=== PATIENT | female | born 1975 | race Caucasian/White ===

== ENCOUNTER → 2017-03-30 09:03 | Outpatient (CLI) | payer OTHER, SELFPAY ==
[2017-03-30 10:42] LABS: Estradiol 27.8 pg/mL
[2017-03-30 10:47] LABS: Progesterone Level 14.41 ng/mL (See Comment)
== END ==
PROVIDERS: Family Provider Internal Medicine; PCP Internal Medicine; Visit Provider Specialist
DX: E28.8 Other ovarian dysfunction (principal)
CPT/HCPCS: 36415; 82670; 84144; 84403

== ENCOUNTER → 2017-08-20 12:42 | Outpatient (CLI) | payer OTHER, SELFPAY ==
--- NOTE | 2017-08-20 12:44 | BI_ITS ---
MAMMOGRAPHY - BILATERAL SCREENING REASON FOR EXAM: Female, 42 years old. Routine annual screening examination. PERTINENT HISTORY: Non-contributory. TECHNIQUE: Digital bilateral breast curly (3D mammographic acquisition) in the CC and MLO projections. 2-D mediolateral oblique (MLO) and craniocaudad (CC) views of both breasts were obtained. CAD: Full Field Digital Mammography with Computer Added Detection was performed. COMPARISON: None. Baseline examination. FINDINGS: Breast Composition: The breasts are heterogeneously dense, which may obscure small masses. There are no dominant masses or suspicious calcifications. No other significant abnormalities are identified. BI/SCREENING MAMM (CAD), BILAT IMPRESSION: Negative screening mammogram. Yearly followup mammogram recommended. (A) ASSESSMENT CATEGORY: BIRADS Category 1: Negative. A letter regarding these results will be sent to the patient by the facility within 30 days. Approximately 10% of breast cancers are not detected by mammography. A normal mammogram should not delay biopsy of a clinically suspicious abnormality. [id number] Electronically Signed: Arron Velasco MD at 14:35 EDT Tel [phone], Service support ,
[2017-08-20 14:23] LABS: Estradiol 18.4 pg/mL
[2017-08-21 08:46] LABS: Progesterone Level 7.96 ng/mL (See Comment); Vitamin D,25 Hydroxy 60.1 ng/mL (29.95-100.01)
[2017-08-21 09:05] LABS: DHEA Sulfate 263.8 ug/dL (57.3-279.2)
== END ==
PROVIDERS: Specialist; Family Provider Internal Medicine; PCP Internal Medicine; Visit Provider Obstetrics & Gynecology
DX: Z12.31 Encounter for screening mammogram for malignant neoplasm of breast (principal); N95.1 Menopausal and female climacteric states; E55.9 Vitamin D deficiency, unspecified
CPT/HCPCS: 36415; 77063; 77067; 82306; 82627; 82670; 84144; 84403; 82626

== ENCOUNTER → 2017-12-31 09:00 | Outpatient (CLI) | payer OTHER, SELFPAY ==
[2017-12-31 10:56] LABS: Progesterone Level 1.48 ng/mL (See Comment)
[2017-12-31 11:08] LABS: Estradiol 42.3 pg/mL
== END ==
PROVIDERS: Family Provider Internal Medicine; PCP Internal Medicine; Referring Provider Specialist; Visit Provider Specialist
DX: N95.1 Menopausal and female climacteric states (principal)
CPT/HCPCS: 36415; 82670; 84144; 84403

== ENCOUNTER → 2018-06-22 09:28 | Outpatient (CLI) | payer OTHER, SELFPAY ==
[2018-06-22 11:50] LABS: Progesterone Level 5.47 ng/mL (See Comment)
[2018-06-22 11:54] LABS: Free T3 2.8 pg/mL (2.18-3.98); Thyroid Stim Hormone (TSH) 0.85 uIU/mL (0.358-3.74)
[2018-06-22 11:55] LABS: Estradiol 21.9 pg/mL; T4 Free Direct 1.08 ng/dL (0.76-1.46)
== END ==
PROVIDERS: Family Provider Internal Medicine; PCP Internal Medicine; Referring Provider Specialist; Visit Provider Specialist
DX: E02 Subclinical iodine-deficiency hypothyroidism (principal); N95.1 Menopausal and female climacteric states
CPT/HCPCS: 36415; 82670; 84144; 84403; 84439; 84443; 84481

== ENCOUNTER → 2018-09-20 15:00 | Outpatient (CLI) | payer OTHER, SELFPAY ==
[2018-09-20 15:36] VITALS: BMI 32.3
[2018-09-23 15:55] LABS: HPV APTIMA, High Risk Negative (Negative)
== END ==
PROVIDERS: Family Provider Internal Medicine; PCP Internal Medicine; Referring Provider Obstetrics & Gynecology; Visit Provider Obstetrics & Gynecology
DX: Z12.4 Encounter for screening for malignant neoplasm of cervix (principal); R30.0 Dysuria
CPT/HCPCS: 87086; 87088; 87624; 88175; G0145

== ENCOUNTER → 2018-10-20 12:23 | Outpatient (CLI) | payer OTHER, SELFPAY ==
[2018-09-20 15:36] VITALS: BMI 32.3
--- NOTE | 2018-10-20 12:25 | BI_ITS ---
MAMMOGRAPHY - BILATERAL SCREENING REASON FOR EXAM: Female, 43 years old. Routine annual screening examination. PERTINENT HISTORY: Non-contributory. TECHNIQUE: Digital bilateral breast kathryn (3D mammographic acquisition) in the CC and MLO projections. 2-D mediolateral oblique (MLO) and craniocaudad (CC) views of both breasts were obtained. CAD: Full Field Digital Mammography with Computer Added Detection was performed. COMPARISON: Comparison is made with prior examination dated August 20, 2017. FINDINGS: Breast Composition: The breasts are heterogeneously dense, which may obscure small masses. There are no dominant masses or suspicious calcifications. No other significant abnormalities are identified. There has been no significant change since the prior study. BI/SCREEN MAMM (CAD) W/KATHRYN BILAT IMPRESSION: Stable bilateral screening mammogram. Yearly follow-up mammogram recommended. (A) ASSESSMENT CATEGORY: BIRADS Category 1: Negative. A letter regarding these results will be sent to the patient by the facility within 30 days. Approximately 10% of breast cancers are not detected by mammography. A normal mammogram should not delay biopsy of a clinically suspicious abnormality. [id number] Electronically Signed: Arron Velasco, at 13:47 EDT , Service support ,
== END ==
PROVIDERS: Family Provider Internal Medicine; PCP Internal Medicine; Referring Provider Obstetrics & Gynecology; Visit Provider Obstetrics & Gynecology
DX: Z12.31 Encounter for screening mammogram for malignant neoplasm of breast (principal)
CPT/HCPCS: 77063; 77067

== ENCOUNTER → 2019-08-15 09:25 | Outpatient (CLI) | payer OTHER, SELFPAY ==
[2018-09-20 15:36] VITALS: BMI 32.3
[2019-08-15 12:51] LABS: Estradiol 25.8 pg/mL; Follicle Stimulating Hormone 61.2 mIU/mL
[2019-08-15 13:07] LABS: Progesterone Level 12.06 ng/mL (See Comment)
== END ==
PROVIDERS: PCP Internal Medicine; Referring Provider Specialist; Visit Provider Specialist
DX: N95.1 Menopausal and female climacteric states (principal)
CPT/HCPCS: 36415; 82670; 83001; 84144; 84403

== ENCOUNTER → 2019-10-20 12:16 | Outpatient (CLI) | payer OTHER, SELFPAY ==
[2018-09-20 15:36] VITALS: BMI 32.3
[2019-09-26 08:48] VITALS: BMI 32.3
--- NOTE | 2019-10-20 12:22 | BI_ITS ---
MAMMOGRAPHY - BILATERAL SCREENING REASON FOR EXAM: Female, 44 years old. Routine annual screening examination. PERTINENT HISTORY: Non-contributory. TECHNIQUE: Digital bilateral breast kathryn (3D mammographic acquisition) in the CC and MLO projections. 2-D mediolateral oblique (MLO) and craniocaudad (CC) views of both breasts were obtained. CAD: Full Field Digital Mammography with Computer Added Detection was performed. COMPARISON: Comparison is made with prior study dated 10/20/2018 and 08/20/2017. FINDINGS: Breast Composition: The breasts are heterogeneously dense, which may obscure small masses. There are no dominant masses or suspicious calcifications. Stable benign-appearing bilateral axillary No other significant abnormalities are identified. There has been no significant change since the prior study. BI/SCREEN MAMM (CAD) W/KATHRYN BILAT IMPRESSION: Stable bilateral screening mammogram. Yearly follow-up mammogram recommended. (A) ASSESSMENT CATEGORY: BIRADS Category 2: Benign. A letter regarding these results will be sent to the patient by the facility within 30 days. Approximately 10% of breast cancers are not detected by mammography. A normal mammogram should not delay biopsy of a clinically suspicious abnormality. [id number] Electronically Signed: Arron Velasco, at 13:09 EDT , Service support ,
== END ==
PROVIDERS: PCP Internal Medicine; Referring Provider Obstetrics & Gynecology; Visit Provider Obstetrics & Gynecology
DX: Z12.31 Encounter for screening mammogram for malignant neoplasm of breast (principal)
CPT/HCPCS: 77063; 77067

== ENCOUNTER → 2019-10-27 16:51 | Outpatient (CLI) | payer OTHER, SELFPAY ==
[2019-09-26 08:48] VITALS: BMI 32.3
[2019-10-27 18:35] LABS: Ferritin 40 ng/mL (8-252)
== END ==
PROVIDERS: PCP Internal Medicine; Referring Provider Physician Assistant Medical; Visit Provider Physician Assistant Medical
DX: L64.8 Other androgenic alopecia (principal)
CPT/HCPCS: 36415; 82728

== ENCOUNTER → 2019-11-29 16:01 | Outpatient (CLI) | payer OTHER, SELFPAY ==
[2019-09-26 08:48] VITALS: BMI 32.3
--- NOTE | 2019-11-29 16:03 | RAD_ITS ---
STUDY: X-RAY - RIGHT FOOT CLINICAL: Right foot pain. TECHNIQUE: 3 view(s) of the foot. COMPARISON: None. FINDINGS: Normal talus, calcaneus, and tarsal bones. Normal visualized subtalar, talonavicular, calcaneocuboid, tarsal and tarsometatarsal articulations. Normal metatarsi. Normal metatarsophalangeal joint of the great toe. Normal tibial and fibular sesamoid bones. Normal interphalangeal joint of the great toe. Normal phalanges of the great toe. Normal second through fifth metatarsophalangeal joints. Normal interphalangeal joints and phalanges of the lesser toes. The soft tissue structures are unremarkable. RAD/Foot min 3 Views IMPRESSION: Normal x-ray examination of the right foot. Electronically Signed: Fantasma Gu MD at 10:23 EDT Tel , Service support ,
== END ==
PROVIDERS: PCP Internal Medicine; Referring Provider Podiatrist; Visit Provider Podiatrist
DX: M76.61 Achilles tendinitis, right leg (principal)
CPT/HCPCS: 73630

== ENCOUNTER → 2019-12-13 13:00 | Outpatient (CLI) | payer OTHER, SELFPAY ==
[2019-09-26 08:48] VITALS: BMI 32.3
[2019-12-13 15:21] LABS: Progesterone Level 21.39 ng/mL (See Comment)
[2019-12-13 15:30] LABS: Estradiol 19.9 pg/mL; T4 Free Direct 1.26 ng/dL (0.76-1.46); Thyroid Stim Hormone (TSH) 1.11 uIU/mL (0.358-3.74)
== END ==
PROVIDERS: PCP Internal Medicine; Referring Provider Specialist; Visit Provider Specialist
DX: N95.1 Menopausal and female climacteric states (principal); E03.8 Other specified hypothyroidism; R53.81 Other malaise
CPT/HCPCS: 36415; 82627; 82670; 84144; 84403; 84439; 84443; 84481; 82626

== ENCOUNTER → 2020-04-18 09:25 | Outpatient (CLI) | payer OTHER, SELFPAY ==
[2019-09-26 08:48] VITALS: BMI 32.3
[2020-04-18 10:52] LABS: Progesterone Level 13.67 ng/mL (See Comment)
[2020-04-18 10:58] LABS: Estradiol 79.2 pg/mL
== END ==
PROVIDERS: PCP Internal Medicine; Referring Provider Specialist; Visit Provider Specialist
DX: N95.1 Menopausal and female climacteric states (principal)
CPT/HCPCS: 36415; 82670; 84144; 84403

== ENCOUNTER → 2020-07-19 08:55 | Outpatient (CLI) | payer OTHER, SELFPAY ==
[2020-07-19 08:20] VITALS: BMI 30.2
--- NOTE | 2020-07-19 08:30 | EMB_PTH ---
PATIENT: MINDI VILLAGOMEZ LOC: [facility] U#:[id number] AGE/SX: 49/F ROOM: RE07/19/[address]: Dr. Kelly Glez MD : 1975 BED: DIS: SPEC #: [id number] RECD: 07/19/20 11:12 STATUS: ROKC IBIS #: [id number] RUPERTO: 07/19/20 08:[address]: Kelly Glez DEPT: SURGICAL PATHOLOGY RECD BY: Aylin Jean Baptiste ENTERED: 07/19/20 11:35 SP TYPE: ENDOM BX/C TAYLOR DR: Dr. Aniyah Hinton DO Tissues: Endometrium, NOS Procedures: Surgery Specimen Level IV HEADER OPERATION: Endometrial biopsy PRE-OP DIAGNOSIS: PMB TISSUE SUBMITTED: Endometrial biopsy MICROSCOPIC DIAGNOSIS Endometrial biopsy: Proliferative endometrium with glandular and stromal breakdown. APPLE:rox 07/20/2020 MICROSCOPIC DESCRIPTION Slides are reviewed. GROSS DESCRIPTION Received is one container labeled with the patient's name and not further designated. The specimen consists of multiple irregular fragments of medina tissue that in aggregate measure 1 x 0.5 x <0.1 cm. The specimen is totally submitted in one cassette. / AM:rox 07/19/20 TC:5 CPT: 79395
[2020-07-19 09:05] LABS: Absolute Lymphocyte Count 2.14 X10^3/uL (0.83-4.51); Absolute Neutrophil Count 3.7 X10^3/uL (2.0-7.7); Basophil# 0.07 X10^3/uL; Basophil% 1.1 % (0-1); Eosinophil# 0.12 X10^3/uL; Eosinophils% 1.9 % (0-5); Hematocrit 47.7 % (37-47); Hemoglobin 15.5 g/dL (12.0-15.0); Lymphocyte # 2.14 X10^3/ul (0.83-4.51); Lymphocyte % 33.4 % (19-41); Mean Corp Hgb Conc 32.5 g/dL (32-36); Mean Corpuscular Hgb 28.8 pg (27.0-32.0); Mean Corpuscular Volume 88.5 fL (81-99); Monocyte# 0.37 X10^3/uL; Monocyte% 5.8 % (0-10); NRBC Flagged by Analyzer 0 % (0-5); Neutrophil # 3.69 X10^3/uL (2.7-7.7); Neutrophil % 57.6 % (47-70); Platelet Count 384 K/mm3 (150-450); RBC Distribution Width CV 12.1 % (11.6-14.6); RBC Distribution Width SD 39.1 fl (35.1-43.9); Red Blood Count 5.39 M/mm3 (4.2-5.4); White Blood Count 6.4 K/mm3 (4.4-11.0)
--- NOTE | 2020-07-19 12:32 | US_ITS ---
STUDY: ULTRASOUND OF THE FEMALE PELVIS - COMPLETE REASON FOR EXAM: Female, 45 years old. Post menopausal bleeding with RLQ pain TECHNIQUE: Transabdominal and Transvaginal TECHNICAL QUALITY: Adequate. COMPARISON: None. FINDINGS: The uterus is anteverted and is tilted to the right side of the pelvis. The uterus measures 7.4 cm x 4.2 cm x 2.9 cm. Normal uterine cervix. The endometrium measures 4 mm in thickness, and is . There is no demonstrated endometrial mass. There is no demonstrated myometrial mass. I.U.D. - The patient does not have an I.U.D. The right ovary is visualized. The right ovary measures 1.5 cm x 1.7 cm x 1.2 cm. There is no right ovarian cyst or ovarian mass. There is no visualized right adnexal mass or complex lesion. There is normal arterial and normal venous vascularity. The left ovary is visualized. The left ovary measures 2.4 cm x 1.2 cm x 1.6 cm. There is no left ovarian cyst or ovarian mass. There is no visualized left adnexal mass or complex lesion. There is normal arterial and normal venous vascularity. There is no fluid in the cul-de-sac. The pre void volume of the bladder was 65 ml. US/Transvaginal Non- IMPRESSION: Normal female pelvis. Electronically Signed: Arron Velasco MD at 13:29 EDT , Service support ,
--- NOTE | 2020-07-19 12:32 | US_ITS ---
STUDY: ULTRASOUND OF THE FEMALE PELVIS - COMPLETE REASON FOR EXAM: Female, 45 years old. Post menopausal bleeding with RLQ pain TECHNIQUE: Transabdominal and Transvaginal TECHNICAL QUALITY: Adequate. COMPARISON: None. FINDINGS: The uterus is anteverted and is tilted to the right side of the pelvis. The uterus measures 7.4 cm x 4.2 cm x 2.9 cm. Normal uterine cervix. The endometrium measures 4 mm in thickness, and is . There is no demonstrated endometrial mass. There is no demonstrated myometrial mass. I.U.D. - The patient does not have an I.U.D. The right ovary is visualized. The right ovary measures 1.5 cm x 1.7 cm x 1.2 cm. There is no right ovarian cyst or ovarian mass. There is no visualized right adnexal mass or complex lesion. There is normal arterial and normal venous vascularity. The left ovary is visualized. The left ovary measures 2.4 cm x 1.2 cm x 1.6 cm. There is no left ovarian cyst or ovarian mass. There is no visualized left adnexal mass or complex lesion. There is normal arterial and normal venous vascularity. There is no fluid in the cul-de-sac. The pre void volume of the bladder was 65 ml. US/Pelvic (Non ) IMPRESSION: Normal female pelvis. Electronically Signed: Arron Velasco MD at 13:29 EDT , Service support ,
== END ==
PROVIDERS: PCP Internal Medicine; Referring Provider Obstetrics & Gynecology; Visit Provider Obstetrics & Gynecology
DX: N95.0 Postmenopausal bleeding (principal)
CPT/HCPCS: 36415; 76830; 76856; 85025; 88305; 93976

== ENCOUNTER → 2020-08-28 08:25 | Outpatient (CLI) | payer OTHER, SELFPAY ==
[2020-07-19 08:20] VITALS: BMI 30.2
[2020-08-28 10:38] LABS: Progesterone Level 11.13 ng/mL (See Comment)
[2020-08-28 10:40] LABS: Estradiol 255.1 pg/mL; Free T3 4.6 pg/mL (2.18-3.98); T4 Free Direct 1.18 ng/dL (0.76-1.46)
== END ==
PROVIDERS: PCP Internal Medicine; Referring Provider Specialist; Visit Provider Specialist
DX: E03.9 Hypothyroidism, unspecified (principal); E27.9 Disorder of adrenal gland, unspecified; N95.1 Menopausal and female climacteric states
CPT/HCPCS: 36415; 82627; 82670; 84144; 84403; 84439; 84481; 82626

== ENCOUNTER → 2020-11-05 08:39 | Outpatient (CLI) | payer OTHER, SELFPAY ==
[2020-07-19 08:20] VITALS: BMI 30.2
--- NOTE | 2020-11-05 08:41 | BI_ITS ---
MAMMOGRAPHY - BILATERAL SCREENING REASON FOR EXAM: Female, 45 years old. Routine annual screening examination. PERTINENT HISTORY: Non-contributory. TECHNIQUE: Digital bilateral breast kathryn (3D mammographic acquisition) in the CC and MLO projections. 2-D mediolateral oblique (MLO) and craniocaudad (CC) views of both breasts were obtained. CAD: Full Field Digital Mammography with Computer Added Detection was performed. COMPARISON: Comparison is made with prior study dated 10/20/2019 and 10/20/2018. FINDINGS: Breast Composition: The breasts are heterogeneously dense, which may obscure small masses. There are no dominant masses or suspicious calcifications. Stable benign-appearing bilateral axillary lymph nodes. No other significant abnormalities are identified. There has been no significant change since the prior study. BI/SCRN MAMM (CAD)W/KATHRYN BILAT IMPRESSION: Stable bilateral screening mammogram. Yearly follow-up mammogram recommended. (A) ASSESSMENT CATEGORY: BIRADS Category 2: Benign. A letter regarding these results will be sent to the patient by the facility within 30 days. Approximately 10% of breast cancers are not detected by mammography. A normal mammogram should not delay biopsy of a clinically suspicious abnormality. [id number] Electronically Signed: Arron Velasco MD at 10:19 EDT , Service support ,
== END ==
PROVIDERS: PCP Internal Medicine; Visit Provider Obstetrics & Gynecology
DX: Z12.31 Encounter for screening mammogram for malignant neoplasm of breast (principal)
CPT/HCPCS: 77063; 77067

== ENCOUNTER → 2020-12-10 07:37 | Outpatient (CLI) | payer OTHER, SELFPAY ==
[2020-12-10 11:15] LABS: Progesterone Level 10.41 ng/mL (See Comment)
[2020-12-10 12:13] LABS: Estradiol 18.1 pg/mL; Free T3 3.8 pg/mL (2.18-3.98)
== END ==
PROVIDERS: PCP Internal Medicine; Referring Provider Specialist; Visit Provider Specialist
DX: N95.1 Menopausal and female climacteric states (principal); E03.9 Hypothyroidism, unspecified
CPT/HCPCS: 36415; 82670; 84144; 84403; 84481

== ENCOUNTER 2021-02-12 15:14 | Outpatient (CLI) | payer OTHER, SELFPAY ==
[2021-02-12 15:42] VITALS: BP 135/93; PULSE 107; RESP 18; TEMP 39.4; O2SAT 98; BMI 28.7
[2021-02-12] MEDS: Acetaminophen 325 MG Tablet 650 MG PO (15:51)
[2021-02-12] MEDS: 0.9% Saline Lock 10 ML Syringe IV (15:52)
[2021-02-12 16:23] VITALS: BP 129/92; PULSE 100; RESP 18; TEMP 38.6; O2SAT 96
[2021-02-12 17:14] VITALS: BP 113/70; PULSE 85; RESP 16; TEMP 37.9; O2SAT 98
== END 2021-02-12 17:23 | disposition home or self-care (01) ==
LOC: MS3OUT 15:14 → MS3 15:15
PROVIDERS: PCP Internal Medicine; Referring Provider Nurse Practitioner Adult Health; Visit Provider Nurse Practitioner Adult Health
DX: U07.1 COVID-19 (principal)
CPT/HCPCS: J7050; M0245; Q0245; A4216

== ENCOUNTER → 2021-02-13 10:36 | Outpatient (CLI) | payer OTHER, SELFPAY ==
--- NOTE | 2021-02-13 10:39 | RAD_ITS ---
STUDY: X-RAY CHEST REASON FOR EXAM: Female, 45 years old. COUGH TECHNIQUE: Single AP portable view of the chest. COMPARISON: Comparison is made with prior study dated 08/19/2012. FINDINGS: There is evidence of a pulmonary infiltrate in the lateral aspect of the right upper lobe. There is no demonstrated pleural abnormality. Normal size heart. Normal mediastinum and dmitry. Normal visualized pulmonary arteries. Normal visualized aortic arch and descending thoracic aorta. Normal visualized thoracic spine. Normal visualized ribs, clavicles, and shoulders. There is no demonstrated abnormality of the visualized soft tissue structures of the upper abdomen. RAD/Chest PA and Lateral IMPRESSION: Peripheral infiltrate in the lateral aspect of the right upper lobe. Covid pneumonitis should be ruled out. Electronically Signed: Arron Velasco MD at 10:56 EST , Service support ,
== END ==
PROVIDERS: PCP Internal Medicine; Referring Provider Internal Medicine; Visit Provider Internal Medicine
DX: R05.9 Cough, unspecified (principal)
CPT/HCPCS: 71046

== ENCOUNTER 2021-04-23 10:49 | Outpatient (CLI) | payer OTHER, SELFPAY ==
[2021-04-23 12:50] LABS: Progesterone Level 9.19 ng/mL (See Comment)
[2021-04-23 13:03] LABS: Estradiol 24.9 pg/mL; Free T3 3.6 pg/mL (2.18-3.98)
== END 2021-04-23 23:59 | disposition home or self-care (01) ==
PROVIDERS: PCP Internal Medicine; Referring Provider Specialist; Visit Provider Specialist
DX: N95.1 Menopausal and female climacteric states (principal); E03.9 Hypothyroidism, unspecified
CPT/HCPCS: 36415; 82670; 84144; 84403; 84481

== ENCOUNTER 2021-07-15 10:15 | Day surgery (SDC) | payer OTHER, SELFPAY ==
[2021-07-15] VITALS (7 sets, daily range): BP systolic 96–141; BP diastolic 59–94; PULSE 59–95; RESP 16; TEMP 36.1–36.6; O2SAT 95–100; BMI 29.5
--- NOTE | 2021-07-15 | EGD_PTH ---
PATIENT: MINDI VILLAGOMEZ LOC: EN U#:[id number] AGE/SX: 46/F ROOM: RE07/15/[address]: Dr. Gómez Bustos DO : 1975 BED: DIS: 07/15/2021 SPEC #: [id number] RECD: 07/15/21 16:42 STATUS: ROCK RERudi #: [id number] RUPERTO: 07/15/21 00:[address]: Gómez Bustos DEPT: SURGICAL PATHOLOGY RECD BY: Christofer Stewart ENTERED: 07/16/21 09:26 SP TYPE: EGD BIOPSY [facility] DR: Dr. Aniyah Hinton DO Tissues: A - Duodenum, NOS B - Esophageal mucous membrane C - Ileum, NOS D - COLON BIOPSY Procedures: Special Stain Group II Surgery Specimen Level IV Alcian Blue/PAS (control) HEADER OPERATION: Colonoscopy, EGD ([facility]) with biopsies PRE-OP DIAGNOSIS: Inflammatory bowel disease, irritable bowel disease TISSUE SUBMITTED: A ? Duodenum biopsy, B ? Distal esophagus biopsy, C ? Terminal ileum biopsy, D ? Random colon biopsies MICROSCOPIC DIAGNOSIS A. Duodenum, biopsy: Fragments of duodenal mucosa, no pathologic diagnosis. B. Distal esophagus, biopsy: Fragments of gastroesophageal mucosa with moderate chronic inflammation. Intestinal metaplasia (goblet cell metaplasia) not identified. See comment. C. Terminal ileum, biopsy: Fragments of small intestinal mucosa, no pathologic diagnosis. D. Colon, random biopsy: Fragments of colonic mucosa, no pathologic diagnosis. SJ:rox 07/17/2021 COMMENT B. Alcian blue/PAS stain with matched control is used in the evaluation of the specimen. MICROSCOPIC DESCRIPTION Slides are reviewed. GROSS DESCRIPTION A - Received in fixative is one container labeled with the patient's name and designated duodenum biopsy. The specimen consists of multiple irregular fragments of light medina soft tissue that in aggregate measure 1.2 x 0.3 x 0.1 cm. The specimen is totally submitted in one cassette. B - Received in fixative is one container labeled with the patient's name and designated distal esophagus biopsy. The specimen consists of multiple irregular fragments of light medina soft tissue that in aggregate measure 1 x 0.3 x 0.1 cm. The specimen is totally submitted in one cassette. C - Received in fixative is one container labeled with the patient's name and designated terminal ileum biopsy. The specimen consists of multiple irregular fragments of light medina soft tissue that in aggregate measure 1.2 x 0.5 x 0.1 cm. The specimen is totally submitted in one cassette. D - Received in fixative is one container labeled with the patient's name and designated random colon biopsy. The specimen consists of multiple irregular fragments of light medina soft tissue that in aggregate measure 1 x 0.5 x 0.1 cm. The specimen is totally submitted in one cassette. / SJ:rg 07/16/2021 TC:3 CPT: 89974 x4, 86507
--- NOTE | 2021-07-15 10:29 | HP.PCM_ITS ---
History and Physical Date of Admission: 07/15/21 MINDI VILLAGOMEZ, is a 45 F who presents to the office today for the possible diagnosis of Crohn's disease. She has been diagnosed with IBS and Crohn's disease on a previous colonoscopy with intubation of the terminal ileum. There was a suggestion that she needed to be on anti-TNF therapy. She did never wanted to be on long-term immunosuppressive therapy. She was disappointed after seeing 3 indirect sales representative and no one suggested an alternative to current medical therapy or plan to possibly go off of medical therapy in the future if possible. She has long-term GI issues. Today she has been having difficulty with R sided abdominal pain. Alternating between diarrhea and constipation and noted this is food dependent. Belching and bloating following PO intake. She feels that she is currently going through a flare. Previously diagnosed as Crohn's by Dr. Rader. Notes that stress is a trigger and has a lot of this in her life. She has a family history of colon cancer in her mother. She would would prefer holistic and lifestyle changes rather than ongoing medication use. Has noted that in the past her flares will spontaneously resolve. ROS Const Constitutional: No anorexia, fatigue, fever(s), weight change or sleep problems Eyes Eyes: No change in vision ENT ENT: No abnormal hearing, difficulty swallowing, mouth lesions, tongue swelling or throat swelling Resp Respiratory: No cough or shortness of breath Cardio Cardiology: No chest pain at rest, chest pain with exertion, shortness of breath or dyspnea on exertion Gastro GI: No difficulty swallowing Genitourinary-Female: No difficulty urinating or burning urination Musc Musculoskeletal: No joint pain, joint swelling, muscle weakness or decreased muscle mass Skin Skin: No hair loss in leg, yellowing of the eye, itchy eyes, rash, skin ulcer or skin swelling Neuro Neurology: No abnormal hearing, abnormal movements, confusion, unsteady gait/balance or memory loss Psych Psychiatric: No anxiety, No confusion and No memory loss Endo Endocrine: No fatigue or weight change Aller/Imm Allergy/Immunologic: No itchy eyes, throat swelling or tongue swelling Ke/Lymp Hematologic/Lymphatic: No easy bleeding, easy bruising or enlarged lymph nodes Exam Const General: cooperative and comfortable Nutritional Appearance: average body habitus and well nourished HENMT Head: normal to inspection Ears: hearing grossly normal bilaterally Nose: external nose normal Face and sinus: normal facial exam Mouth: oral mucosae normal Throat: posterior oropharynx normal Eyes General: appearance normal, both eyes and all related structures Neck Neck: normal visual inspection Chest Chest palpation & inspection: normal inspection of the chest and normal palpation of entire chest wall Resp Effort & Inspection: normal respiratory effort Auscultation: Bilateral: Clear to Auscultation Cardio Palpation: normal PMI Rate: regular rate Rhythm: regular rhythm GI Inspection: normal to inspection Auscultation: normal bowel sounds Percussion: normal to percussion Palpation: no hepatosplenomegaly Skin General: no rashes or lesions noted Neuro General: patient alert Extrem General: normal to inspection Psych Affect: normal affect Quality Reporting Tobacco Screening ([facility] 138) Smoking Status: Never smoker Assessment and Plan Assessment and Plan (1) Inflammatory bowel disease: Status: Acute Plan - Dr. Magaña Friend, DO: She will undergo evaluation of the upper and lower GI tract to see if there is any signs of inflammatory bowel disease. She may also need a capsule endoscopy. She will need to get an ESR, CRP, JENNIFER will comprehensive profile, celiac antibody test and possible imaging. (2) IBS (irritable bowel syndrome): Status: Acute Plan - Dr. Magaña Friend, DO: I do believe a lot of her issues are related to stress as she would agree. We will do a food analysis required her to do 2 weeks to a 30-day diary of the food that she eats. She will also need a food allergy panel. I am confident that we can get her feeling better and getting back on track to be feeling normal. I have re-examined the patient. There are no clinical changes since date of exam.
[2021-07-15] MEDS: Lactated Ringers 1,000 ML 15 ML IV (10:58)
--- NOTE | 2021-07-15 11:50 | PCM.HP.BLA ---
History and Physical Date of Admission: 07/15/21 45 F who presents to the office today for the possible diagnosis of Crohn's disease. She has been diagnosed with IBS and Crohn's disease on a previous colonoscopy with intubation of the terminal ileum. There was a suggestion that she needed to be on anti-TNF therapy. She did never wanted to be on long-term immunosuppressive therapy. She was disappointed after seeing 3 armored car driver and no one suggested an alternative to current medical therapy or plan to possibly go off of medical therapy in the future if possible. She has long-term GI issues. Today she has been having difficulty with R sided abdominal pain. Alternating between diarrhea and constipation and noted this is food dependent. Belching and bloating following PO intake. She feels that she is currently going through a flare. Previously diagnosed as Crohn's by Dr. Rader. Notes that stress is a trigger and has a lot of this in her life. She has a family history of colon cancer in her mother. She would would prefer holistic and lifestyle changes rather than ongoing medication use. Has noted that in the past her flares will spontaneously resolve. ROS Const Constitutional: No anorexia, fatigue, fever(s), weight change or sleep problems Eyes Eyes: No change in vision ENT ENT: No abnormal hearing, difficulty swallowing, mouth lesions, tongue swelling or throat swelling Resp Respiratory: No cough or shortness of breath Cardio Cardiology: No chest pain at rest, chest pain with exertion, shortness of breath or dyspnea on exertion Gastro GI: No difficulty swallowing Genitourinary-Female: No difficulty urinating or burning urination Musc Musculoskeletal: No joint pain, joint swelling, muscle weakness or decreased muscle mass Skin Skin: No hair loss in leg, yellowing of the eye, itchy eyes, rash, skin ulcer or skin swelling Neuro Neurology: No abnormal hearing, abnormal movements, confusion, unsteady gait/balance or memory loss Psych Psychiatric: No anxiety, No confusion and No memory loss Endo Endocrine: No fatigue or weight change Aller/Imm Allergy/Immunologic: No itchy eyes, throat swelling or tongue swelling Ke/Lymp Hematologic/Lymphatic: No easy bleeding, easy bruising or enlarged lymph nodes Exam Const General: cooperative and comfortable Nutritional Appearance: average body habitus and well nourished HENNJ Head: normal to inspection Ears: hearing grossly normal bilaterally Nose: external nose normal Face and sinus: normal facial exam Mouth: oral mucosae normal Throat: posterior oropharynx normal Eyes General: appearance normal, both eyes and all related structures Neck Neck: normal visual inspection Chest Chest palpation & inspection: normal inspection of the chest and normal palpation of entire chest wall Resp Effort & Inspection: normal respiratory effort Auscultation: Bilateral: Clear to Auscultation Cardio Palpation: normal PMI Rate: regular rate Rhythm: regular rhythm GI Inspection: normal to inspection Auscultation: normal bowel sounds Percussion: normal to percussion Palpation: no hepatosplenomegaly Skin General: no rashes or lesions noted Neuro General: patient alert Extrem General: normal to inspection Psych Affect: normal affect Quality Reporting Tobacco Screening ([facility] 138) Smoking Status: Never smoker Assessment and Plan Assessment and Plan (1) Inflammatory bowel disease: Status: Acute Plan - Dr. Magaña Friend, DO: She will undergo evaluation of the upper and lower GI tract to see if there is any signs of inflammatory bowel disease. She may also need a capsule endoscopy. She will need to get an ESR, CRP, JENNIFER will comprehensive profile, celiac antibody test and possible imaging. (2) IBS (irritable bowel syndrome): Status: Acute Plan - Dr. Magaña Friend, DO: I do believe a lot of her issues are related to stress as she would agree. We will do a food analysis required her to do 2 weeks to a 30-day diary of the food that she eats. She will also need a food allergy panel. I am confident that we can get her feeling better and getting back on track to be feeling normal. I have re-examined the patient. There are no clinical changes since date of exam.
--- NOTE | 2021-07-15 12:55 | OP.EGD_ITS ---
Patient Name: Isabella Engle Procedure Date: 07/15/2021 12:12 PM Date of : 1975 Age: 46 Procedure: Upper GI endoscopy Indications: Epigastric abdominal pain Providers: Gómez Bustos DO Medicines: Monitored Anesthesia Care Patient Profile: This is a 46 year old female. Refer to note in patient chart for documentation of history and physical. Patient has symptoms of chronic abdominal distention and chronic epigastric abdominal pain. Complications: No immediate complications. Procedure: Pre-Anesthesia Assessment: - Prior to the procedure, a History and Physical was performed, and patient medications and allergies were reviewed. The patient is competent. The risks and benefits of the procedure and the sedation options and risks were discussed with the patient. All questions were answered and informed consent was obtained. Patient identification and proposed procedure were verified by the physician in the pre-procedure area. Mental Status Examination: alert and oriented. Airway Examination: normal oropharyngeal airway and neck mobility. Respiratory Examination: clear to auscultation. CV Examination: normal. Prophylactic Antibiotics: The patient does not require prophylactic antibiotics. Prior Anticoagulants: The patient has taken no previous anticoagulant or antiplatelet agents. After reviewing the risks and benefits, the patient was deemed in satisfactory condition to undergo the procedure. The anesthesia plan was to use moderate sedation / analgesia (conscious sedation). Immediately prior to administration of medications, the patient was re-assessed for adequacy to receive sedatives. The heart rate, respiratory rate, oxygen saturations, blood pressure, adequacy of pulmonary ventilation, and response to care were monitored throughout the procedure. The physical status of the patient was re-assessed after the procedure. After obtaining informed consent, the endoscope was passed under direct vision. Throughout the procedure, the patient's blood pressure, pulse, and oxygen saturations were monitored continuously. The pediatric colonoscope was introduced through the mouth, and advanced to the second part of duodenum. The upper GI endoscopy was accomplished without difficulty. The patient tolerated the procedure well. Scope In: 12:27:40 PM Scope Out: 12:32:34 PM Total Procedure Duration Time 0 hours 4 minutes 54 seconds Findings: The Z-line was irregular and was found 38 cm from the incisors. Biopsies were taken with a cold forceps for histology. A small hiatal hernia was present. No gross lesions were noted in the entire examined stomach. Patchy erythematous mucosa without active bleeding and with no stigmata of bleeding was found in the first portion of the duodenum. Biopsies were taken with a cold forceps for histology. Verification of patient identification for the specimen was done. Estimated blood loss was minimal. Impression: - Z-line irregular, 38 cm from the incisors. Biopsied. - Small hiatal hernia. - No gross lesions in the stomach. - Erythematous duodenopathy. Biopsied. Recommendation: - Discharge patient to home. - Resume previous diet. - Continue present medications. - Await pathology results. Procedure Code(s): --- Professional --- 39435, Esophagogastroduodenoscopy, flexible, transoral; with biopsy, single or multiple CPT copyright 2017 [employer]. All rights reserved. The codes documented in this report are preliminary and upon nat instructor review may be revised to meet current compliance requirements. Gómez Bustos DO 07/15/2021 12:55:18 PM This report has been signed electronically. Number of Addenda: 1 Note Initiated On: 07/15/2021 12:12 PM Addendum Number: 1 Addendum Date: 11/22/2021 6:11:51 AM MAC was used as sedation for this procedure. Gómez Bustos DO 11/22/2021 6:11:59 AM This report has been signed electronically.
--- NOTE | 2021-07-15 12:56 | OP.CCLET_ITS ---
11/22/2021 Aniyah Hinton [address] [place] [address] Re : Upper GI endoscopy procedure for Isabella Engle Dear Dr. Hinton This procedure was performed on Thursday, July 15, 2021. My impressions and recommendations are as follows: Impressions : - Z-line irregular, 38 cm from the incisors. Biopsied. - Small hiatal hernia. - No gross lesions in the stomach. - Erythematous duodenopathy. Biopsied. Recommendations : - Discharge patient to home. - Resume previous diet. - Continue present medications. - Await pathology results. My findings are described in the full procedure note, which is enclosed. If I can be of further assistance, please feel free to contact me at . Sincerely, Gómez Bustos, 07/15/2021 12:55:18 PM This report has been signed electronically.
--- NOTE | 2021-07-15 12:59 | OP.COLON_ITS ---
Patient Name: Isabella Engle Procedure Date: 07/15/2021 12:33 PM Date of : 1975 Age: 46 Procedure: Colonoscopy Indications: Crohn's disease of the small bowel and colon Providers: Gómez Bustos DO Medicines: Monitored Anesthesia Care Patient Profile: This is a 46 year old female. Refer to note in patient chart for documentation of history and physical. Patient has symptoms of chronic abdominal distention and chronic epigastric abdominal pain. Last Colonoscopy: 5 years ago. Complications: No immediate complications. Procedure: Pre-Anesthesia Assessment: - Prior to the procedure, a History and Physical was performed, and patient medications and allergies were reviewed. The patient is competent. The risks and benefits of the procedure and the sedation options and risks were discussed with the patient. All questions were answered and informed consent was obtained. Patient identification and proposed procedure were verified by the physician in the pre-procedure area. Mental Status Examination: alert and oriented. Airway Examination: normal oropharyngeal airway and neck mobility. Respiratory Examination: clear to auscultation. CV Examination: normal. Prophylactic Antibiotics: The patient does not require prophylactic antibiotics. Prior Anticoagulants: The patient has taken no previous anticoagulant or antiplatelet agents. After reviewing the risks and benefits, the patient was deemed in satisfactory condition to undergo the procedure. The anesthesia plan was to use moderate sedation / analgesia (conscious sedation). Immediately prior to administration of medications, the patient was re-assessed for adequacy to receive sedatives. The heart rate, respiratory rate, oxygen saturations, blood pressure, adequacy of pulmonary ventilation, and response to care were monitored throughout the procedure. The physical status of the patient was re-assessed after the procedure. After I obtained informed consent, the scope was passed under direct vision. Throughout the procedure, the patient's blood pressure, pulse, and oxygen saturations were monitored continuously. The pediatric colonoscope was introduced through the anus and advanced to the terminal ileum. The colonoscopy was performed without difficulty. The patient tolerated the procedure well. The quality of the bowel preparation was good. Scope In: 12:35:56 PM Scope Withdrawal Time 0 hours 9 minutes 0 seconds Scope Out: 12:48:43 PM Total Procedure Duration Time 0 hours 12 minutes 47 seconds Findings: The perianal and digital rectal examinations were normal. The colon (entire examined portion) appeared normal. Biopsies were taken with a cold forceps for histology. Verification of patient identification for the specimen was done. Estimated blood loss was minimal. The terminal ileum appeared normal. Biopsies were taken with a cold forceps for histology. Verification of patient identification for the specimen was done. Estimated blood loss was minimal. Impression: - The entire examined colon is normal. Biopsied. - The examined portion of the ileum was normal. Biopsied. Recommendation: - Written discharge instructions were provided to the patient. - The signs and symptoms of potential delayed complications were discussed with the patient. - Patient has a contact number available for emergencies. - Return to normal activities tomorrow. - Resume previous diet. - Continue present medications. - Await pathology results. - Repeat colonoscopy is recommended for surveillance. The colonoscopy date will be determined after pathology results from today's exam become available for review. Procedure Code(s): --- Professional --- 07509, Colonoscopy, flexible; with biopsy, single or multiple CPT copyright 2017 [employer]. All rights reserved. The codes documented in this report are preliminary and upon student dean review may be revised to meet current compliance requirements. Gómez Bustos DO 07/15/2021 12:59:10 PM This report has been signed electronically. Number of Addenda: 1 Note Initiated On: 07/15/2021 12:33 PM Addendum Number: 1 Addendum Date: 11/22/2021 6:12:07 AM MAC was used as sedation for this procedure. Gómez Bustos DO 11/22/2021 6:12:16 AM This report has been signed electronically.
--- NOTE | 2021-07-15 13:00 | OP.CCLET_ITS ---
11/22/2021 Aniyah Hinton [address] [place] [address] Re : Colonoscopy procedure for Isabella Engle Dear Dr. Hinton This procedure was performed on Thursday, July 15, 2021. My impressions and recommendations are as follows: Impressions : - The entire examined colon is normal. Biopsied. - The examined portion of the ileum was normal. Biopsied. Recommendations : - Written discharge instructions were provided to the patient. - The signs and symptoms of potential delayed complications were discussed with the patient. - Patient has a contact number available for emergencies. - Return to normal activities tomorrow. - Resume previous diet. - Continue present medications. - Await pathology results. - Repeat colonoscopy is recommended for surveillance. The colonoscopy date will be determined after pathology results from today's exam become available for review. My findings are described in the full procedure note, which is enclosed. If I can be of further assistance, please feel free to contact me at . Sincerely, Gómez Bustos, 07/15/2021 12:59:10 PM This report has been signed electronically.
== END 2021-07-15 13:53 | disposition home or self-care (01) ==
LOC: EN 10:19 → AC 10:22
PROVIDERS: PCP Internal Medicine; Referring Provider Internal Medicine; Visit Provider Internal Medicine Gastroenterology
PROC: 0DJD8ZZ Inspection of Lower Intestinal Tract, Via Natural or Artificial Opening Endoscopic (ICD-10-PCS; CPT 45378; principal; 2021-07-15 11:40)
DX: K50.80 Crohn's disease of both small and large intestine without complications (principal); K44.9 Diaphragmatic hernia without obstruction or gangrene; K31.89 Other diseases of stomach and duodenum; R10.13 Epigastric pain; Z86.16 Personal history of COVID-19; Z80.0 Family history of malignant neoplasm of digestive organs
CPT/HCPCS: 45380; 43239; 88305; 88313; J7120; J2405

== ENCOUNTER → 2021-09-13 | Outpatient (CLI) | payer OTHER, SELFPAY ==
[2021-09-13 10:23] LABS: Free T3 2.9 pg/mL (2.18-3.98)
[2021-09-13 10:36] LABS: Progesterone Level 23.89 ng/mL (See Comment)
== END | disposition home or self-care (01) ==
LOC: MTLAB 07:48
PROVIDERS: PCP Internal Medicine; Referring Provider Specialist; Visit Provider Specialist
DX: N95.1 Menopausal and female climacteric states (principal); E03.9 Hypothyroidism, unspecified
CPT/HCPCS: 36415; 82670; 84144; 84403; 84481

== ENCOUNTER → 2021-12-06 | Outpatient (CLI) | payer OTHER, SELFPAY ==
--- NOTE | 2021-12-06 09:07 | BI_ITS ---
MAMMOGRAPHY - BILATERAL SCREENING REASON FOR EXAM: Female, 46 years old. Routine annual screening examination. PERTINENT HISTORY: Non-contributory. TECHNIQUE: Digital bilateral breast kathryn (3D mammographic acquisition) in the CC and MLO projections. 2-D mediolateral oblique (MLO) and craniocaudad (CC) views of both breasts were obtained. CAD: Full Field Digital Mammography with Computer Added Detection was performed. COMPARISON: Comparison is made with prior examination of 11/05/2020 and 10/20/2019. FINDINGS: Breast Composition: The breasts are heterogeneously dense, which may obscure small masses. There are no dominant masses or suspicious calcifications. Stable small benign-appearing bilateral axillary lymph nodes. No other significant abnormalities are identified. There has been no significant change since the prior study. BI/SCRN MAMM (CAD)W/KATHRYN BILAT IMPRESSION: Stable bilateral screening mammogram. Yearly follow-up mammogram recommended. (A) ASSESSMENT CATEGORY: BIRADS Category 2: Benign. A letter regarding these results will be sent to the patient by the facility within 30 days. Approximately 10% of breast cancers are not detected by mammography. A normal mammogram should not delay biopsy of a clinically suspicious abnormality. [id number] Electronically Signed: Arron Velasco MD at 11:13 EDT ,
== END | disposition home or self-care (01) ==
LOC: OPBI 09:06
PROVIDERS: PCP Internal Medicine; Referring Provider Obstetrics & Gynecology; Visit Provider Obstetrics & Gynecology
DX: Z12.31 Encounter for screening mammogram for malignant neoplasm of breast (principal)
CPT/HCPCS: 77063; 77067

== ENCOUNTER 2021-12-30 18:00 | Outpatient (RCR) | payer OTHER, SELFPAY ==
--- NOTE | 2021-10-24 11:59 | HP.PTEVAL ---
Patient's Visit Information MINDI VILLAGOMEZ is a 46 year old F referred to Physical Therapy by Dr. Kelly Glez MD with a diagnosis of STRESS INCONTINENCE. Date of Evaluation: 10/24/21 Physical Therapist: Camelia Contreras PT, Cert MDT - Visit Plan Frequency: 1x/Week Duration: 6-8 WEEKS Plan: MANUAL PF THERAPY FOR STRENGTHENING, LENGTHENING/RELAXATION AND ENDURANCE TRAINING. URINARY INCONTINENCE EDUCATION. CONSIDER INTERNAL OR EXTERNAL PF BIOFEEDBACK WITH EQUIPMENT. TRAINING IN COORDINATION OF PELVIC FLOOR MUSCULATURE WITH CORE (TRANSVERSE ABDOMINUS) STRENGTHENING. TRAINING IN ABDOMINAL CAVITY PRESSURE MGMT WITH ADL'S TO DECREASE URINARY LEAKING. 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 Disability: NO. Present symptoms: PATIENT REPORTS A LONG HISTORY OF URINARY FREQUENCY HER ENTIRE LIFE. SINCE HAVING 2 CHILDREN (YOUNGEST IS 8 YEARS OLD) MORE INABLILTY TO HOLD IT UNTIL SHE GETS TO THE BATHROOM AND MORE LEAKING RANDOMLY WITHOUT WARNING. Pain Scale: NO PAIN. Worse: SNEEZING, COUGHING. Better: CROSSING LEGS. Disturbed sleep: URINATES ONE TIME OR LESS AT NIGHT. NO LEAKING AT NIGHT. Previous history/Previous treatment: PATIENT DENIES ANY PRIOR TREATMENTS. PT HAS BEEN RECOMMENDED BY HER DOCTOR AND NO OTHER RECOMMENDATIONS AT THIS TIME. DENIES SPINE PROBLEMS BUT REPORTS SHE GOES TO A CHIROPRACTOR ONCE A MONTH FOR SPINE MAINTENANCE. Gait: NORMAL. Bowel Dysfunction: HAD NORMAL COLONOSCOPY AND ENDOSCOPY RECENTLY. DOES HAVE URGENCY WITH BOWEL TOO BUT NO LEAKAGE OR BOWEL INCONTINENCE. NO CONSTIPATION. NO CHRONIC diarrheas. Accidents: DROPPED A CHEERLEADER IN COLLEGE RESULTING IN L KNEE SURGERY. Unexplained weight loss: NO. PMH/Recent major surgery: L KNEE SURGERY. NIDDM RECENTLY DX'S. - Objective Sitting/Standing Posture: FAIR. Lordosis: NORMAL. Other Observations: INDEP GAIT AND TRANSFERS. Sensory deficit: DOREEN LE LIGHT TOUCH SENSATION IS GROSSLY INTACT AND SYMMETRICAL. ROM deficit: MILD DOREEN LE TIGHT HS AND GASTROC SOLEUS COMPLEX'S. MODERATE PELVIC FLOOR TIGHTNESS. Motor deficit: DOREEN LE'S 5/5 WITH MMT'ING. PELVIC FLOOR MUSCLES 3/5 AND POOR ENDURANCE WITH INTERNAL TESTING. Dural Signs: NEGATIVE DOREEN LE'S. Lumbar mvmt loss: flex - NIL. ext - MIN. R SG - NIL. L SG - NIL. PATIENT DENIES PAIN WITH LUMBAR ROM TESTING ALL PLANES. Core strength: FAIR. OTHER: PATIENT IS A GOOD CANDIDATE FOR PELVIC FLOOR THERAPY. ISSUED PATIENT BLADDER DIARY AND INSTRUCTIONS REQUESTING TO COMPLETE X 2-3 DAYS. PATIENT IS AGREEABLE. - Goals Goal 1:: DECREASE URINARY LEAKAGE EPISODES TO 1 OR LESS PER DAY Goal Time Frame: 6-8 Weeks Goal 2:: DELAY VOIDING FOR 30 MINUTES WITHOUT LEAKAGE Goal Time Frame: 6-8 Weeks Goal 3:: INCREASE PELVIC FLOOR MUSCLE STRENGTH GRADE TO 5/5 Goal Time Frame: 6-8 Weeks Goal 4:: DEMONSTRATE 10 CONSISTENT AND CONSECUTIVE 10 SECOND PELVIC FLOOR MUSCLE CONTRACTIONS. Goal Time Frame: 6-8 Weeks Goal 5:: VOID FREQUENCEY EVERY 3-4 HOURS Goal Time Frame: 6-8 Weeks Goal 6:: FLUID INTAKE OF ? BODY WEIGHT IN OUNCES PER DAY WITH 2/3 BEING WATER. Goal Time Frame: 2 Weeks - Anticipated Interventions Patient/Client Instruction: Educate patient on: Condition, Plan of Care, Risk Factors For the Purpose of:: To improve self management Therapeutic Exercise to Include: Strength training, Endurance training, Coordination, Body mechanics, Postural training, Flexibilty training, Neuromotor development For the Purpose of:: To increase ROM, To improve muscle performance and motor function, To increase tolerance to activity/condition/position, To improve ability of physical actions for home/community/work/leisure, To improve endurance, To improve ability to perform tasks related to life management Manual Therapy Techniques to Include: Soft tissue mobilization, Other Comment: STM NEEDED. MANUAL/THERAPIST TACTILE BIOFEEDBACK For the Purpose of:: To increase ROM, To improve nutrient delivery to tissue, To improve muscle performance and motor function Biofeedback: Yes For the Purpose of:: To improve muscle performance and motor function Thank you for the opportunity to evaluate your patient. For Medicare and Medicare HMO plans, please review the plan of care and approve it. It will need to be FAXED BACK to us at [phone] for Medicare purposes. For Medicare only, by signing this I certify the plan of care. Please let me know if there are questions or concerns regarding this plan of care. Physician Signature: Date:
== END 2021-12-30 19:00 | disposition home or self-care (01) ==
LOC: PT 18:00
PROVIDERS: PCP Internal Medicine; Referring Provider Obstetrics & Gynecology; Visit Provider Obstetrics & Gynecology
DX: N39.3 Stress incontinence (female) (male) (principal)
CPT/HCPCS: 97161; 97530

== ENCOUNTER → 2022-01-15 | Outpatient (CLI) | payer OTHER, SELFPAY ==
[2022-01-15 13:03] LABS: Progesterone Level 6.55 ng/mL (See Comment)
[2022-01-15 13:15] LABS: Estradiol 28.3 pg/mL; Free T3 2.7 pg/mL (2.18-3.98)
[2022-01-15 13:36] LABS: Hemoglobin A1c 5.8 % (3.8-5.6)
== END | disposition home or self-care (01) ==
LOC: MTLAB 09:50
PROVIDERS: PCP Internal Medicine; Referring Provider Internal Medicine; Visit Provider Internal Medicine
DX: E03.9 Hypothyroidism, unspecified (principal); R73.09 Other abnormal glucose; N95.1 Menopausal and female climacteric states
CPT/HCPCS: 36415; 82670; 83036; 84144; 84403; 84481

== ENCOUNTER → 2022-04-16 | Outpatient (CLI) | payer OTHER, SELFPAY ==
--- NOTE | 2022-04-16 | EMB_PTH ---
PATIENT: [facility]IND[facility]AG[facility]Z [id number] AGE/SX: 47/F ROOM: RE04/16/[address]: DAYDAY Prasad : 1975 BED: DIS: 04/16/2022 SPEC #: [id number] RECD: 04/16/22 15:05 STATUS: ROCK RERudi #: [id number] RUPERTO: 04/16/22 00:[address]: Natalya Durbin NP DEPT: SURGICAL PATHOLOGY RECD BY: Christofer Stewart ENTERED: 04/17/22 09:15 SP TYPE: ENDOM BX/C TAYLOR DR: Dr. Aniyah Hinton DO Tissues: Endometrium, NOS Procedures: Surgery Specimen Level IV HEADER OPERATION: Endometrial biopsy PRE-OP DIAGNOSIS: Postmenopausal bleeding, on bioidentical hormones TISSUE SUBMITTED: Endometrial tissue MICROSCOPIC DIAGNOSIS Endometrial biopsy: Proliferative endometrium with extensive glandular and stromal breakdown. Fragments of benign endocervical mucosa. SJ:rox 04/18/2022 MICROSCOPIC DESCRIPTION Slides are reviewed. GROSS DESCRIPTION Received is one container labeled with the patient's name and not further designated. The specimen consists of multiple fragments of hemorrhagic mucoid tissue that in aggregate measure 3.0 x 2.5 x 0.2 cm. The specimen is totally submitted in one cassette. / APPLE:rox 04/17/2022 TC:5 CPT: 91658
== END | disposition home or self-care (01) ==
LOC: LABSPEC 15:09
PROVIDERS: PCP Internal Medicine; Visit Provider Nurse Practitioner Women's Health
DX: N95.0 Postmenopausal bleeding (principal)
CPT/HCPCS: 88305

== ENCOUNTER → 2022-04-17 | Outpatient (CLI) | payer OTHER, SELFPAY ==
--- NOTE | 2022-04-17 17:55 | US_ITS ---
INDICATION: PMB EXAMINATION: US Pelvis Non OB Complete With Transvaginal Imaging TECHNIQUE: Transabdominal and transvaginal pelvic ultrasound was performed. Grayscale, spectral waveform, and color flow Doppler evaluation of the adnexa. COMPARISON: None. FINDINGS: UTERUS: Anteverted. The uterus measures 7.6 x 4.8 x 3.7 cm. There is no uterine mass. The endometrial stripe measures 4 mm in AP diameter which is within normal limits. RIGHT OVARY: Not visualized. LEFT OVARY: Measures 2.1 x 1.6 x 1.5 cm. Non-enlarged, normal echogenicity. There is normal arterial inflow and venous outflow present in the left ovary. FREE FLUID: None. US/Pelvic (Non ) IMPRESSION: Nonvisualization of the right ovary. Otherwise normal left ovary and uterus. Electronically Signed: Juan Luis Mancia MD at 20:32 EST ,
== END | disposition home or self-care (01) ==
LOC: US 18:04
PROVIDERS: PCP Internal Medicine; Visit Provider Nurse Practitioner Women's Health
DX: N95.0 Postmenopausal bleeding (principal)
CPT/HCPCS: 76830; 76856

== ENCOUNTER → 2022-04-22 | Outpatient (CLI) | payer OTHER, SELFPAY ==
--- NOTE | 2022-04-22 14:19 | CT_ITS ---
STUDY: CT ABDOMEN AND PELVIS WITH CONTRAST REASON FOR EXAM: Female, 47 years old. RIGHTSIDED ABDOMINAL PAIN RADIATION DOSAGE (If Supplied By Facility): CTDIvol = ( 8.55 ) mGy, DLP = ( 492.68 ) mGycm TECHNIQUE: Transaxial images were obtained from the dome of the diaphragm to the symphysis pubis without oral contrast. Oral and amp; IV Gastrografin and amp; 100mL Isovue-300 was administered. Sagittal and coronal images were reconstructed. Individualized dose optimization techniques were used for this CT. COMPARISON: None. FINDINGS: The visualized lung bases are unremarkable. The visualized portions of the heart are within normal limits. Small hiatal hernia is noted Liver is fatty infiltrated without mass or bile duct dilatation.. Thick walled contracted gallbladder containing at least one noncalcified stones without pericholecystic edema.. Normal spleen. Normal pancreas. Normal bilateral adrenal glands. Normal right kidney. Normal left kidney. Normal visualized stomach. Normal small intestine. Normal colon. No evidence for acute appendicitis. Tiny pericecal nodes likely of no significance Normal abdominal aorta. Normal inferior vena cava. Normal retroperitoneum. Poorly distended thick walled bladder of uncertain significance. Small subcentimeter bilateral inguinal nodes likely benign.. Normal osseous structures. CT/Abdomen/Pelvis WITH Contrast IMPRESSION: Cholelithiasis without definitive evidence for acute cholecystitis. Ultrasound or HIDA scan would be helpful for further evaluation if indicated Electronically Signed: Rashad Joshi MD at 17:08 EST ,
[2022-04-22 14:54] LABS: Erythrocyte Sedimentation Rate 3 mm/hr (0-30)
[2022-04-22 14:57] LABS: Absolute Lymphocyte Count 2.35 X10^3/uL (0.83-4.51); Absolute Neutrophil Count 3.6 X10^3/uL (2.0-7.7); Basophil# 0.09 X10^3/uL; Basophil% 1.3 % (0-1); Eosinophil# 0.13 X10^3/uL; Eosinophils% 1.9 % (0-5); Hematocrit 43.5 % (37-47); Hemoglobin 14.3 g/dL (12.0-15.0); Lymphocyte # 2.35 X10^3/ul (0.83-4.51); Lymphocyte % 34.8 % (19-41); Mean Corp Hgb Conc 32.9 g/dL (32-36); Mean Corpuscular Hgb 29.1 pg (27.0-32.0); Mean Corpuscular Volume 88.4 fL (81-99); Mean Platelet Vol. 9.1 fl (6.2-12.0); Monocyte# 0.54 X10^3/uL; NRBC Flagged by Analyzer 0 % (0-5); Neutrophil # 3.63 X10^3/uL (2.7-7.7); Neutrophil % 53.9 % (47-70); Platelet Count 389 K/mm3 (150-450); RBC Distribution Width CV 12.2 % (11.6-14.6); RBC Distribution Width SD 40.2 fl (35.1-43.9); Red Blood Count 4.92 M/mm3 (4.2-5.4); White Blood Count 6.8 K/mm3 (4.4-11.0)
[2022-04-22 15:09] LABS: ALB/GLOB Ratio 1.1 RATIO (0.9-2.4); AST(SGOT) 20 U/L (15-37); Alanine Aminotransfer ALT/SGPT 36 U/L (13-56); Albumin, Serum 3.9 g/dL (3.2-5.0); Alkaline Phosphatase 69 U/L (45-117); Anion Gap 5 (5-15); BUN 15 mg/dL (7-18); BUN/Creat Ratio 20.2 RATIO (10-20); CRP 4.74 mg/L (0.0-3.0); Calcium,Total 9.8 mg/dL (8.5-10.1); Chloride 101 mmol/L (98-107); Creatinine, Serum 0.74 mg/dL (0.55-1.02); EST Glomerular Filtration Rate 89 mL/min (>60); Est Glom Filt Rate - Afr Amer 108 mL/min (>60); Globulin 3.6 g/dL (2.2-4.2); Glucose 100 mg/dL (74-106); Potassium 4.2 mmol/L (3.5-5.1); Protein, Total 7.5 g/dL (6.4-8.2); Sodium Level 136 mmol/L (136-145)
== END | disposition home or self-care (01) ==
PROVIDERS: PCP Internal Medicine; Referring Provider Internal Medicine; Visit Provider Internal Medicine
DX: R10.31 Right lower quadrant pain (principal)
CPT/HCPCS: 36415; 74177; 80053; 85025; 85652; 86140; Q9967

== ENCOUNTER → 2022-04-29 | Outpatient (CLI) | payer OTHER, SELFPAY ==
[2022-04-29 13:22] LABS: Absolute Lymphocyte Count 2.12 X10^3/uL (0.83-4.51); Absolute Neutrophil Count 3.7 X10^3/uL (2.0-7.7); Basophil# 0.07 X10^3/uL; Basophil% 1.1 % (0-1); Eosinophil# 0.11 X10^3/uL; Eosinophils% 1.7 % (0-5); Hematocrit 43.9 % (37-47); Hemoglobin 14.5 g/dL (12.0-15.0); Lymphocyte # 2.12 X10^3/ul (0.83-4.51); Lymphocyte % 32.8 % (19-41); Mean Corpuscular Hgb 29.5 pg (27.0-32.0); Mean Corpuscular Volume 89.4 fL (81-99); Mean Platelet Vol. 9.2 fl (6.2-12.0); Monocyte% 6.2 % (0-10); NRBC Flagged by Analyzer 0 % (0-5); Neutrophil # 3.74 X10^3/uL (2.7-7.7); Neutrophil % 57.9 % (47-70); Platelet Count 394 K/mm3 (150-450); RBC Distribution Width CV 12.3 % (11.6-14.6); RBC Distribution Width SD 39.9 fl (35.1-43.9); Red Blood Count 4.91 M/mm3 (4.2-5.4); White Blood Count 6.5 K/mm3 (4.4-11.0)
[2022-04-29 13:35] LABS: ALB/GLOB Ratio 1.1 RATIO (0.9-2.4); AST(SGOT) 23 U/L (15-37); Alanine Aminotransfer ALT/SGPT 38 U/L (13-56); Albumin, Serum 3.9 g/dL (3.2-5.0); Alkaline Phosphatase 62 U/L (45-117); Anion Gap 6 (5-15); BUN 16 mg/dL (7-18); BUN/Creat Ratio 23.4 RATIO (10-20); CRP 5.48 mg/L (0.0-3.0); Calcium,Total 9.4 mg/dL (8.5-10.1); Chloride 106 mmol/L (98-107); Creatinine, Serum 0.68 mg/dL (0.55-1.02); EST Glomerular Filtration Rate 99 mL/min (>60); Est Glom Filt Rate - Afr Amer 119 mL/min (>60); Globulin 3.5 g/dL (2.2-4.2); Glucose 104 mg/dL (74-106); Potassium 4.1 mmol/L (3.5-5.1); Protein, Total 7.4 g/dL (6.4-8.2); Sodium Level 139 mmol/L (136-145)
[2022-04-29 13:40] LABS: Erythrocyte Sedimentation Rate 6 mm/hr (0-30)
== END | disposition home or self-care (01) ==
LOC: MTLAB 12:54
PROVIDERS: PCP Internal Medicine; Referring Provider Internal Medicine; Visit Provider Internal Medicine
DX: R11.0 Nausea (principal)
CPT/HCPCS: 36415; 80053; 85025; 85652; 86140

== ENCOUNTER → 2022-04-30 | Outpatient (CLI) | payer OTHER, SELFPAY ==
--- NOTE | 2022-04-30 07:30 | US_ITS ---
Examination: Limited right upper quadrant ultrasound. INDICATION: Nausea. Right abdominal pain for 3 weeks. TECHNIQUE: Dedicated right upper quadrant ultrasound was obtained including Doppler images. COMPARISON: CT dated April 22, 2022. FINDINGS: The liver is diffusely echogenic consistent with fatty infiltration. There is a gallstone within the gallbladder. There is no gallbladder wall thickening nor pericholecystic fluid. By report there is slight tenderness in the region of the gallbladder. The common bile duct measures 4.8 mm. The visualized pancreas is grossly unremarkable. The right kidney is within normal limits. US/Abdomen Limited IMPRESSION: Fatty infiltration of the liver. Cholelithiasis with no associated gallbladder wall thickening nor pericholecystic fluid. Electronically Signed: Sera Crow MD at 8:26 EST ,
== END | disposition home or self-care (01) ==
LOC: US 07:29
PROVIDERS: PCP Internal Medicine; Visit Provider Internal Medicine
DX: R11.0 Nausea (principal)
CPT/HCPCS: 76705

== ENCOUNTER 2022-05-12 11:03 | Day surgery (SDC) | payer OTHER, SELFPAY ==
[2022-05-12] VITALS (11 sets, daily range): BP systolic 135–173; BP diastolic 65–107; PULSE 70–95; RESP 12–18; TEMP 36.5–36.8; O2SAT 93–100; BMI 31.6
--- NOTE | 2022-05-12 11:07 | HP.PCM_ITS ---
History and Physical Date of Admission: 05/12/22 Date of Service:? 05/06/22 MR#: [id number] Acct: [id number] Name:MINDI BENTLEY Rep #: [id number] : 1975 ? ? Provider: Dr. Sophie Chow MD Age/Sex:? 47/F ? ? Location: [facility] [place] Status: Signed Intake Vital Signs ? 04/16/2312:50 05/06/2308:33 Height 5 ft 1 in 5 ft 1 in Weight: ? 169 lb 2 oz BMI ? 31.9 BP ? 125/85 H Blood Pressure Location ? Rt brachial Position ? Sitting Respiration ? 16 Pulse ? 86 Pulse Source ? NIBP Temp ?B 98.1 F Temp Source ? Temporal Pulse Oximetry (%) ? 100 Oxygen Delivery Method ? room air Intake Visit Reasons:?Gall Bladder Issues Chief Complaint: gallstones/ RUQ pain Spring Intern Required: No Is patient in pain?: No Allergies Sulfa (Sulfonamide Antibiotics) Allergy (Severe, Verified 05/06/22 09:34) hivesbenzoyl peroxide Allergy (Intermediate, Verified 05/06/22 09:34) Hiveserythromycin base [Erythromycin Base] Adverse Reaction (Mild, Verified 05/06/22 09:34) Vomiting Medications lactobacillus combination no.8 3 billion cell capsule (Adult Probiotic) 3,000 mmu cells PO DAILY 09/20/18 [History Confirmed 05/06/22] escitalopram oxalate 5 mg tablet (Lexapro) 10 mg PO DAILY 09/26/19 [History Confirmed 05/06/22] multivitamin,[id number] (Complete Multivitamin tablet) 1 tab PO DAILY 09/26/19 [History Confirmed 05/06/22] omega-3 fatty acids-vitamin E 1,000 mg capsule 1 cap PO DAILY 07/12/21 [History Confirmed 05/06/22] estradiol 0.25 mg/0.25 gram (0.1 %) transdermal gel packet 1 packet transdermal DAILY 04/16/22 [History Confirmed 05/06/22] metformin 500 mg tablet 500 mg PO DAILY 05/06/22 [History Confirmed 05/06/22] omeprazole 40 mg capsule,delayed release 40 mg PO QDAY #30 caps 05/06/22 [Rx Confirmed 05/06/22] turmeric 400 mg capsule mg PO 05/06/22 [History Confirmed 05/06/22] Is last menstrual period known: No Post menopausal: No Patient : No PFSH Medical History?(Updated 05/06/22 @ 09:[address] Sophie Chow MD) Acute maxillary sinusitis, unspecified Acute otitis media, right Anxiety Encounter for screening for COVID-19 Fibromyalgia Taylor's thyroiditis Heartburn Hyperlipidemia IBS (irritable bowel syndrome) Inflammatory bowel disease Post-menopausal Rheumatoid arthritis Wears glasses Surgical History?(Updated 05/06/22 @ 09:33 by Rosaline Gastelum) H/O dilation and curettage H/O left knee surgery History of colonoscopy History of surgical biopsy Family History? Mother Cancer ?? ? uterine Thyroid disorder ?? ? taylor ?? ? Rheumatoid arthritisGrandmother Cancer ?? ? rectal cancer Rheumatoid arthritisFather Heart disease Social History? Smoking Status:? Never smoker alcohol intake:? current details:? social substance use type:? does not use caffeine:? No what type of physical activity do you participate in:? walking frequency:? 5-6 times per week seatbelt use:? always do you feel safe at home:? Yes additional social history:? 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 Patient states for about the last 3 weeks she has noticed right upper quadrant discomfort occasionally radiating to her back or shoulder blade.? Patient also states she has some burping diarrhea and bloating and reflux along with this.? Patient is currently not on any PPI.? Patient states her pain really only occurs after eating denies pain in the middle of the night or in the morning prior to eating.? Patient has been trying to change her diet and avoid fatty or greasy foods.? Patient previously had a CT abdomen pelvis and ultrasound.? Both do show the about 1.5 cm gallstone. ROS General General: Yes weight change; No appetite, fatigue, colon cancer, breast cancer or weakness HEENT HEENT: No difficulty swallowing, eye injury, eye surgery, swollen glands or hoarseness Endo Endocrine: No thyroid disease, diabetes mellitus, thyroid cancer, Hair loss, heat intolerance or cold intolerance Skin Skin: No rash or changing moles Musc Musculoskeletal: Yes rheumatoid arthritis; No back problems, arthritis, gout or joint pain Cardio Cardiovascular: No murmur, pacemaker, heart disease, atrial fibrillation, high blood pressure, heart attack, heart stent, palpitations, shortness of breat with exertion or chest pain Psych Psychiatric: Yes anxiety; No depression or hearing voices Resp Respiratory: No shortness of breath, No sleep apnea, No cough, No COPD, No asthma, No emphysema and No wheezing Gastro Gastrointestinal: Yes abdominal pain, Yes nausea or vomiting, Yes diarrhea, No constipation, No blood in stool, Yes acid reflux, No hemorrhoids, No ulcers, Yes gallbladder problem and No black,tarry stools Ke Hematologic: No blood thinners, No blood disorders, No bleeding, No anemia and No blood clots Neuro Neurologic: No numbness, No tingling and No weakness Exam Const General: cooperative, healthy appearing and no acute distress [facility] Head: normal to inspection Resp Effort & Inspection: normal respiratory effort Cardio Rate: regular rate GI Inspection: non-distended Palpation: soft, no guarding, no hernias and tender in the RUQ (Mild) Skin General: no rashes or lesions noted Neuro General: patient oriented x3 Extrem General: no clubbing, cyanosis or edema Psych Affect: normal affect Assessment and Plan Assessment and Plan (1) Gallstones: ?Status:?Acute (2) Bloating symptom: ?Status:?Acute (3) Belching symptom: ?Status:?Acute ? ? ? Medications: New omeprazole ?? swallow whole; do not crush, chew, dissolve, cut, break 40 mg? PO QDAY 30 caps 0RF ? ? Plan Did personally review patient's CT and ultrasound and also reviewed with patient. Patient take omeprazole 40 mg p.o. daily for the perioperative period and see if that helps also improve her bloating or belching as I question whether this may be due to stomach etiology versus gallbladder.? Discussed with patient she was agreeable with plan. Reviewed the anatomy with the patient and discussed the procedure: laparoscopic cholecystectomy with possible cholangiograms, possible open. Review risks including but not limited to bleeding, infection, hernia, bile leak, retained gallstones requiring another procedure ERCP- Endoscopic Retrograde Cholangiopancreatography, injury to another organ (bile ducts, common bile duct, small bowel, etc.) and conversion to an open procedure. All questions were answered. Sophie Chow M.D. Pager: [phone] [facility] [address] [place] [address], [address] [place] [address] Office: [phone] Coding Level of Care Code Off vis,new,level 4 Diagnoses Gallstones? K80.20 Bloating symptom? R14.0 Belching symptom? R14.2 05/06/22 1000 <Electronically signed by Sophie Chow MD> Date Sophie Chow MD
--- NOTE | 2022-05-12 11:21 | EKG12_ITS ---
Test Reason : PRE OP Blood Pressure : / mmHG Vent. Rate : 075 BPM Atrial Rate : 075 BPM P-R Int : 132 ms QRS Dur : 082 ms QT Int : 410 ms P-R-T Axes : 052 026 030 degrees QTc Int : 457 ms Normal sinus rhythm with sinus arrhythmia Nonspecific ST abnormality Abnormal ECG When compared with ECG of 19-AUG-2012 21:00, Vent. rate has decreased BY 53 BPM Nonspecific T wave abnormality has replaced inverted T waves in Inferior leads Nonspecific T wave abnormality no longer evident in Lateral leads Confirmed by CORDELL ROWELL, ROGE ([id number]), business editor ESTHER BROWN ([id number]) on 05/14/2022 8:33:04 AM Referred By: Sophie Chow Confirmed By:ROGE LANDA MD
--- NOTE | 2022-05-12 11:30 | RAD_ITS ---
STUDY: INTRAOPERATIVE CHOLANGIOGRAM. REASON FOR EXAM: Female, 47 years old. Laparoscopic cholecystectomy. FLUOROSCOPY TIME (if supplied): ( 6.7 seconds ) minutes/seconds. 2.15 mGy TECHNIQUE: An intraoperative cholangiogram was performed by the surgeon. Imaging was submitted. COMPARISON: None. FINDINGS: The intrahepatic biliary ducts are unremarkable. The common bile duct is unremarkable. No intraluminal filling defect is seen. There is free flow of contrast into the duodenum. RAD/Cholangiogram/ O R,Initial IMPRESSION: Unremarkable intraoperative cholangiogram. Electronically Signed: Arron Velasco MD at 9:50 EDT ,
[2022-05-12] MEDS: Lactated Ringers 1,000 ML 15 ML IV ×2 (11:34→14:36)
[2022-05-12] MEDS: Cefotetan 2 GM in 0.9% NS 100 ML IV (12:12)
--- NOTE | 2022-05-12 12:30 | GALL_PTH ---
PATIENT: MINDI VILLAGOMEZ [place] [facility] [place][id number] AGE/SX: 47/F ROOM: RE05/12/[address]: Dr. Sophie Chow MD : 1975 BED: DIS: 05/12/2022 SPEC #: [id number] RECD: 05/12/22 15:45 STATUS: ROCK REQ #: [id number] RUPERTO: 05/12/22 12:[address]: Sophie Chow DEPT: SURGICAL PATHOLOGY RECD BY: Aylin Jean Baptiste ENTERED: 05/13/22 08:18 SP TYPE: PHUC VAZQUEZ DR: Dr. Aniyah Hinton DO Tissues: Gallbladder, NOS Procedures: Surgery Specimen Level III HEADER OPERATION: Laparoscopic cholecystectomy with IOC PRE-OP DIAGNOSIS: Gallstones, bloating symptom, belching symptom TISSUE SUBMITTED: Gallbladder MICROSCOPIC DIAGNOSIS Gallbladder, cholecystectomy: Chronic cholecystitis, cholelithiasis and cholesterolosis. SJ:rox 05/14/2022 MICROSCOPIC DESCRIPTION Slides are reviewed. GROSS DESCRIPTION Received is one container labeled with the patient's name and designated gallbladder. The specimen consists of a gallbladder measuring 6.5 cm in length and up to 2.5 cm in diameter. The gallbladder is previously, partially opened. The external surface is pink-medina, smooth and glistening for the most part. Focally it is granular, hemorrhagic and contains cautery artifact. The gallbladder contains a small amount of green-yellow mucoid bile. Present in the container is an ovoid, greenish-medina stone measuring 1.7 cm in greatest dimension. The mucosa is bile-stained and without any mass lesions. The gallbladder wall measures up to 0.3 cm in thickness. Photography Professor sections from the gallbladder and the cystic duct are submitted in one cassette. / APPLE:rox 05/13/2022 TC:3 CPT: 74182
--- NOTE | 2022-05-12 13:39 | PCM.OPRPT ---
Report of Operation Date of Procedure: 05/12/22 Pre-Operative Diagnosis: Right upper quadrant pain, cholelithiasis Post-Operative Diagnosis: Same Surgery/Procedure Performed:: Laparoscopic cholecystectomy with cholangiograms Surgeon: Sophie Chow bpm solution architect: Jess Elizabeth Type of Anesthesia: General/Supplemental Anesthesiologist: Ishmael Panda Special Medications: Cefotetan 2 g IV x1 Specimen's removed: Gallbladder and stone Estimated Blood Loss (mL): 10 cc Description of Procedure: Indications: this is a 47 year-old female who developed abdominal pain/nausea/vomiting and on workup was found to have cholelithiasis, with a normal common bile duct. Laparoscopic cholecystectomy was elected. Description procedure: The patient was placed on operating table in supine position. A timeout was completed verifying correct patient, procedure, site, position and special equipment prior to beginning procedure. General Anesthesia was induced. The abdomen was prepped and draped in usual sterile fashion. An incision was made in the natural skin line above the umbilicus. The fascia was elevated and incised. The peritoneum was elevated and incised. Entry into the peritoneum was confirmed visually and no bowel was noted in the vicinity of the incision. Crowell trocar was placed. The abdomen was insufflated with carbon dioxide to a pressure of 12-15 mmHg. Patient tolerated insufflation well. The laparoscope was then inserted and abdomen inspected. No injuries from initial trocar placement were noted. Additional trochars were then inserted in the following locations 5 mm trocar in the epigastrium and 2 more 5 mm trochars along the right costal margin. The abdomen was inspected no abnormalities were found. The table is placed in reverse Trendelenburg position with the right side up. The dome of the gallbladder was grasped with atraumatic grasper passed through the lateral port and retracted over the dome of the liver. Infundibulum was then grasped with atraumatic grasper through the midclavicular port and retracted to the right lower quadrant. This maneuver exposed Calot's triangle. The peritoneum overlying the gallbladder infundibulum was then incised and cystic duct and artery identified and circumferentially dissected. Mondragon catheter was used for cholangiograms. The cholangiogram showed good filling of the common bile duct into the duodenum with no filling defects, good filling of the right and left bile ducts as well. The cystic duct and artery were then doubly clipped and divided close to the gallbladder. The gallbladder then dissected from its peritoneal attachments by electrocautery. Hemostasis was checked and the gallbladder and contained stones were removed using the endoscopic retrieval bag through the umbilical port. The gallbladder is passed off table as specimen. The gallbladder fossa was irrigated with saline and hemostasis obtained. There is no evidence of bleeding from the gallbladder fossa or cystic artery leakage of bile from the cystic duct stump. Secondary trochars removed under direct vision. No bleeding was noted the trocar sites. The laparoscope was withdrawn and umbilical trocar removed. The abdomen was allowed to collapse. The fascia of the 12 mm trocar was closed with a [id number] 0 Vicryl suture. The skin was closed with sutures of 4-0 Monocryl and Steri-Strips. The patient was extubated. The patient tolerated procedure well and was taken to the postanesthesia care unit in stable condition. Complications none
--- NOTE | 2022-05-12 13:42 | DCINST_ITS ---
Discharge Instructions Diet Discharge Diet: Light diet - advance as tolerated Activity Discharge Activity: May Not Drive (while taking narcotic pain medications.) May shower in (days): 1 Lifting Restrictions: no lifting >20 lbs x 2 wks, no strenuous exercise for 4 wks Dressing / Incision Call your doctor if your incision/area has: Continuous Slow Oozing, Sudden Increased Bleeding, Increased Pain/ Swelling, Increased Redness, Foul Smelling Discharge and Swelling at the incision site Call your doctor if you observe: Fever of 101 or Higher Remove Dressing in: 2 days Cleanse incision/area with: Soap & Water Additional Dressing/Incision Instructions:: Steri-Strips will fall off in 7 to 10 days, if they do not fall off okay to remove after 10 days. Follow Up Care Please Follow Up With: Sophie Chow MD When: Call the office for a follow-up appointment 2 weeks; after 5 PM and on the weekends call [phone] with any concerns. Test Results: Test results from this visit will be discussed in further detail at your follow- up appointment, if applicable. Discharge Plan Admission Attending Provider: Sophie Chow Primary Care Provider: Aniyah Hinton Discharge Orders/Prescriptions Prescriptions: New oxycodone-acetaminophen 5-325 mg tablet 1 - 2 tab PO Q6H PRN (Reason: pain) 3 Days Qty: 10 0RF Continued Adult Probiotic 3 billion cell capsule 3,000 mmu cells PO DAILY multivitamin,mu-kltq-cdbwbjfw tablet 1 tab PO DAILY escitalopram oxalate [Lexapro] 5 mg tablet 10 mg PO DAILY estradiol 0.25 mg/0.25 gram (0.1 %) gel in packet 0.25 mg transdermal DAILY metformin 500 mg tablet 250 mg PO DAILY turmeric 400 mg capsule 400 mg PO DAILY omeprazole 40 mg capsule,delayed release(DR/EC) 40 mg PO QDAY Qty: 30 0RF Rx Instructions: swallow whole; do not crush, chew, dissolve, cut, break omega-3 fatty acids-vitamin E 1,000 mg Capsule 1 cap PO DAILY Bioidentical Thyroid 1 tab PO/SL DAILY Referrals / Follow Up: Aniyah Hinton DO [Primary Care Provider] - Disposition Disposition (needs filled in before D/C Order can be placed): Home, Self Care
[2022-05-12] MEDS: oxyCODONE 5 MG Tablet PO (16:20)
[2022-05-12] MEDS: Acetaminophen 325 MG Tablet PO (16:45)
== END 2022-05-12 16:47 | disposition home or self-care (01) ==
LOC: SDC 11:04 → AC 11:06
PROVIDERS: PCP Internal Medicine; Referring Provider Surgery; Visit Provider Surgery
PROC: (CPT 47610; principal; 2022-05-12 12:10)
DX: K80.10 Calculus of gallbladder with chronic cholecystitis without obstruction (principal); E11.9 Type 2 diabetes mellitus without complications; F41.9 Anxiety disorder, unspecified; E07.9 Disorder of thyroid, unspecified; Z79.899 Other long term (current) drug therapy; Z79.84 Long term (current) use of oral hypoglycemic drugs; Z86.16 Personal history of COVID-19
CPT/HCPCS: 47563; 00790; 74300; 76000; 88304; 93005; J7120; J2405

== ENCOUNTER → 2022-06-09 | Outpatient (CLI) | payer OTHER, SELFPAY ==
[2022-06-09 12:53] LABS: Progesterone Level 5.52 ng/mL (See Comment)
[2022-06-09 13:28] LABS: Estradiol 238.4 pg/mL; Free T3 3.3 pg/mL (2.18-3.98)
== END | disposition home or self-care (01) ==
LOC: MTLAB 09:45
PROVIDERS: PCP Internal Medicine; Referring Provider Specialist; Visit Provider Specialist
DX: E03.9 Hypothyroidism, unspecified (principal); N95.1 Menopausal and female climacteric states
CPT/HCPCS: 36415; 82670; 84144; 84403; 84481

== ENCOUNTER → 2022-10-18 | Outpatient (CLI) | payer OTHER, SELFPAY ==
--- NOTE | 2022-10-18 09:27 | RAD_ITS ---
INDICATION: chills, cough EXAMINATION/TECHNIQUE: X-RAY - XR Chest 2 Views COMPARISON: C-arm February 13, 2021 FINDINGS: LINES/DEVICES: None. LUNGS: No consolidation, edema or effusion. No pneumothorax. Level resolution of right upper lobe infiltrate. MEDIASTINUM AND CARDIOVASCULAR STRUCTURES: Cardiac silhouette not enlarged. Central airways and mediastinal contour are unremarkable. BONES AND SOFT TISSUES: Unremarkable. RAD/Chest PA and Lateral IMPRESSION: No radiographic evidence of acute cardiopulmonary disease. Electronically Signed: Francesco Foster MD, WILL at 10:39 EDT ,
== END | disposition home or self-care (01) ==
LOC: RAD 09:11
PROVIDERS: PCP Internal Medicine; Referring Provider Physician Assistant; Visit Provider Physician Assistant
DX: R68.83 Chills (without fever) (principal); R05.9 Cough, unspecified
CPT/HCPCS: 71046

== ENCOUNTER → 2022-11-03 | Outpatient (CLI) | payer OTHER, SELFPAY ==
[2022-11-03 18:56] LABS: Free T3 3.3 pg/mL (2.18-3.98)
== END | disposition home or self-care (01) ==
PROVIDERS: PCP Internal Medicine; Referring Provider Specialist; Visit Provider Specialist
DX: N95.1 Menopausal and female climacteric states (principal); E03.9 Hypothyroidism, unspecified
CPT/HCPCS: 36415; 82670; 84144; 84403; 84481

== ENCOUNTER → 2022-12-08 | Outpatient (CLI) | payer OTHER, SELFPAY ==
--- NOTE | 2022-12-08 09:05 | BI_ITS ---
MAMMOGRAPHY - BILATERAL SCREENING 3-D TOMOSYNTHESIS REASON FOR EXAM: Female, 47 years old. SCREENING PERTINENT HISTORY: No significant family history. TECHNIQUE: 2-D mammograms and 3-D Tomosynthesis of the breast (s) were performed. CAD was performed. COMPARISON: 12/06/2021 FINDINGS: The breast composition is composed of scattered fibroglandular density. Scattered benign calcifications are seen. No dominant mass right breast. 1 cm irregular indistinct equal density mass in the upper left breast and focal compression views recommended for further evaluation. No suspicious calcifications. No architectural distortion is identified. There is no skin thickening or retraction. BI/SCRN MAMM (CAD)W/KATHRYN BILAT IMPRESSION: Further imaging evaluation is recommended. ASSESSMENT CATEGORY: BIRADS Category 0: Incomplete. Need additional imaging evaluation as above. A letter regarding these results will be sent to the patient by the facility within 30 days. FOLLOW UP RECOMMENDATION: Additional imaging recommended as above. (E) Approximately 10% of breast cancers are not detected by mammography. A normal mammogram should not delay biopsy of a clinically suspicious abnormality. Electronically Signed: Jorge Alberto Erickson MD at 11:05 EDT ,
== END | disposition home or self-care (01) ==
PROVIDERS: PCP Internal Medicine
DX: Z12.31 Encounter for screening mammogram for malignant neoplasm of breast (principal)
CPT/HCPCS: 77063; 77067

== ENCOUNTER → 2022-12-16 | Outpatient (CLI) | payer OTHER, SELFPAY ==
--- NOTE | 2022-12-16 14:29 | US_ITS ---
STUDY: ULTRASOUND BREAST - LEFT REASON FOR EXAM: Female, 47 years old. Abnormal screening mammogram. TECHNIQUE: Axial and longitudinal images of the LEFT breast were performed with a high resolution ultrasound transducer. # OF IMAGES: 16 COMPARISON: Comparison is made with prior mammogram done earlier in the day as well as prior mammogram dated December 08, 2022. FINDINGS: LEFT Breast: There is a 3 mm x 2 mm x 3 mm hypoechoic irregular nodule at the 12:00 position of the breast at 2 cm from the nipple. Biopsy is recommended. US/Breast Limited Unilateral IMPRESSION: 3 mm x 2 mm x 3 mm hypoechoic irregular nodule at the 12:00 position of the breast at 2 cm from the nipple. Biopsy is recommended. ASSESSMENT CATEGORY: BIRADS Category 4: Suspicious - Biopsy Should Be Considered. A letter regarding these results will be sent to the patient by the facility within 30 days. Electronically Signed: Arron Velasco MD at 15:35 EDT ,
--- NOTE | 2022-12-16 14:29 | BI_ITS ---
MAMMOGRAPHY - UNILATERAL DIAGNOSTIC: LEFT BREAST REASON FOR EXAM: Female, 47 years old. Abnormal screening mammogram. PERTINENT HISTORY: Non-contributory. TECHNIQUE: Compression spot views of the left breast were obtained. CAD: Full Field Digital Mammography with Computer Added Detection was performed. COMPARISON: Comparison is made with prior study dated December 08, 2022. FINDINGS: Breast Composition: The breasts are heterogeneously dense, which may obscure small masses. There are no dominant masses or suspicious calcifications. No other significant abnormalities are identified. BI/DIAG MAMM W/CAD, UNILAT IMPRESSION: Negative unilateral diagnostic mammogram. Correlation with targeted ultrasound is recommended. ASSESSMENT CATEGORY: BIRADS Category 0: Incomplete. Need additional imaging evaluation. A letter regarding these results will be sent to the patient by the facility within 30 days. Approximately 10% of breast cancers are not detected by mammography. A normal mammogram should not delay biopsy of a clinically suspicious abnormality. Electronically Signed: Arron Velasco MD at 15:17 EDT ,
== END | disposition home or self-care (01) ==
PROVIDERS: PCP Internal Medicine
DX: R92.322 Mammographic fibroglandular density, left breast (principal)
CPT/HCPCS: 76642; 77065

== ENCOUNTER → 2022-12-24 | Outpatient (CLI) | payer OTHER, SELFPAY ==
--- NOTE | 2022-12-24 | BRBX_PTH ---
PATIENT: MINDI VILLAGOMEZ LOC: U#:[id number] AGE/SX: 47/F ROOM: RE12/24/[address]: Dr. Sophie Chow MD : 1975 BED: DIS: 12/24/2022 SPEC #: [id number] RECD: 12/24/22 14:56 STATUS: ROCK RERudi #: [id number] RUPERTO: 12/24/22 00:[address]: Sophie Chow DEPT: SURGICAL PATHOLOGY RECD BY: Malia Pelaez ENTERED: 12/25/22 09:01 SP TYPE: BREAST BX OTHR DR: Dr. Aniyah Hinton DO Tissues: Breast, NOS Procedures: Surgery Specimen Level IV HEADER OPERATION: Left breast biopsy PRE-OP DIAGNOSIS: Left breast mass TISSUE SUBMITTED: Left breast mass 12:30, 3.0 cm from nipple MICROSCOPIC DIAGNOSIS Left breast mass at 12:30, core biopsy: Fibrocystic change. Focal intraductal hyperplasia without atypia. AM:rox 12/26/2022 MICROSCOPIC DESCRIPTION Slides are reviewed. GROSS DESCRIPTION Received in fixative is one container labeled with the patient's name and designated left breast. The specimen consists of multiple elongated fragments of medina-yellow fibroadipose tissue that in aggregate measure 2.0 x 0.5 x 0.1 cm. The entire specimen is submitted in one cassette. / SJ:rox 12/25/2022 TC:5 Ischemic Time: <1 minute Fixation Time: 29 hours CPT: 18352
--- NOTE | 2022-12-24 13:52 | US_ITS ---
STUDY: ULTRASOUND BREAST - LEFT REASON FOR EXAM: Female, 47 years old. Ultrasound-guided right breast biopsy. TECHNIQUE: Axial and longitudinal images of the LEFT breast were performed with a high resolution ultrasound transducer. # OF IMAGES: 19 COMPARISON: Comparison is made with prior ultrasound of the left breast dated December 16, 2022. FINDINGS: LEFT Breast: Under direct sonographic guidance, the surgeon performed 4 core biopsies of the hypoechoic solid nodule at the 12 to 1:00 position of the breast at 3 cm from the nipple. US/US Breast Biopsy 1st Lesion IMPRESSION: Ultrasound-guided breast biopsy. ASSESSMENT CATEGORY: BIRADS Category 2: Benign. A letter regarding these results will be sent to the patient by the facility within 30 days. Electronically Signed: Arron Velasco MD at 15:46 EDT ,
--- NOTE | 2022-12-24 14:47 | OP.PCM_ITS ---
Report of Operation Date of Procedure: 12/24/22 Pre-Operative Diagnosis: Left breast mass Post-Operative Diagnosis: Same Surgery/Procedure Performed:: Ultrasound-guided left breast biopsy Surgeon: Sophie Chow Type of Anesthesia: Local Specimen's removed: Left breast mass 1230 3 cm from the nipple Estimated Blood Loss (mL): < 10 cc Description of Procedure: Procedure: Left ultrasound-guided core biopsy Indications: 47year-old female with hypoechoic nodule at 1230 in the left breast 3 centimeters from the nipple. Risk benefits were discussed the patient and she elected to proceed with ultrasound guided core biopsy with clip placement Description of procedure: Patient was brought into the ultrasound room in the left breast was marked. A timeout was completed verifying correct patient, procedure, site, specially, prior to beginning procedure. The left breast was prepped and draped in usual sterile fashion and using local anesthesia was obtained with 1% lidocaine with epi. The lesion was located with the ultrasound. Small incision was made with 11 blade to introduced the mammotome through the skin. Under ultrasound guidance multiple core samples were obtained using then 13-gauge mammotome and sent in formalin for pathology. The Tistag[employer] dual ultra ribbon clip was then deployed into the biopsy cavity under ultrasound karla dance and a picture was taken. Upon completion procedure hemostasis was obtained and a Steri-Strip and OpSite were placed. Patient was then taken to the mammography suite for clip verification. The clip was verified. The patient tolerated the procedure well and was discharged from the breast imaging department good condition. complications: none Complications none
== END | disposition home or self-care (01) ==
LOC: US 13:51
PROVIDERS: PCP Internal Medicine; Referring Provider Surgery; Visit Provider Surgery
DX: N62 Hypertrophy of breast (principal); N63.25 Unspecified lump in the left breast, overlapping quadrants
CPT/HCPCS: 19083; 88305

== ENCOUNTER → 2023-02-04 | Outpatient (CLI) | payer OTHER, SELFPAY ==
[2023-02-04 11:00] LABS: Progesterone Level 5.35 ng/mL (See Comment)
[2023-02-04 12:01] LABS: Estradiol 78.4 pg/mL
== END | disposition home or self-care (01) ==
LOC: MTLAB 09:05
PROVIDERS: PCP Internal Medicine; Referring Provider Specialist; Visit Provider Specialist
DX: E03.8 Other specified hypothyroidism (principal); N95.1 Menopausal and female climacteric states
CPT/HCPCS: 36415; 82670; 84144; 84403; 84481

== ENCOUNTER → 2023-03-23 | Outpatient (CLI) | payer OTHER, SELFPAY ==
--- NOTE | 2023-03-23 16:19 | CT_ITS ---
STUDY: CT ABDOMEN AND PELVIS WITHOUT CONTRAST REASON FOR EXAM: Female, 47 years old. Right lower quadrant pain. RADIATION DOSAGE (If Supplied By Facility): CTDIvol = ( 9.09 ) mGy, DLP = ( 431.51 ) mGycm TECHNIQUE: Transaxial images were obtained from the dome of the diaphragm to the symphysis pubis without oral contrast, and without intravenous contrast. Sagittal and coronal images were reconstructed. Individualized dose optimization techniques were used for this CT. COMPARISON: Prior study dated: 2022 FINDINGS: Evaluation of the abdominal viscera is limited in the absence of intravenous contrast. LOWER THORAX: The visualized lung bases are clear. The visualized portions of the heart and pericardium are within normal limits. GALLBLADDER / BILE DUCTS: The patient is status post cholecystectomy. The common bile duct is normal in caliber. There are no calcified ductal stones. LIVER: The liver demonstrates an unremarkable unenhanced appearance. SPLEEN: The spleen is normal in size. PANCREAS: The pancreas demonstrates an unremarkable unenhanced appearance. ADRENAL GLANDS: The adrenal glands are within normal limits. KIDNEYS / BLADDER: There are no renal or ureteral stones. There is no hydronephrosis. There are no focal renal lesions identified on this noncontrast exam. The urinary bladder is partially distended and appears grossly unremarkable. STOMACH / BOWEL: Normal visualized stomach. There is no bowel obstruction or inflammation. The appendix is visualized and appears normal. PERITONEUM / RETROPERITONEUM: There is no abdominal or pelvic free air, free fluid or fluid collection. There is no abnormal soft tissue mass identified. There is no abdominal or pelvic lymphadenopathy. VESSELS: The aorta is normal in caliber. The IVC is unremarkable. BONES: There are no destructive osseous lesions. SOFT TISSUES: The visualized soft tissues are within normal limits. CT/Abdomen/Pelvis without Cont IMPRESSION: No acute abdominal or pelvic pathology. Electronically Signed: Bob Cifuentes MD at 16:58 EST ,
[2023-03-23 16:28] LABS: Absolute Lymphocyte Count 2.67 X10^3/uL (0.83-4.51); Absolute Neutrophil Count 3.4 X10^3/uL (2.0-7.7); Basophil# 0.09 X10^3/uL; Basophil% 1.3 % (0-1); Eosinophil# 0.18 X10^3/uL; Eosinophils% 2.6 % (0-5); Hematocrit 42.3 % (37-47); Lymphocyte # 2.67 X10^3/ul (0.83-4.51); Lymphocyte % 38.8 % (19-41); Mean Corp Hgb Conc 33.1 g/dL (32-36); Mean Corpuscular Hgb 28.9 pg (27.0-32.0); Mean Corpuscular Volume 87.2 fL (81-99); Mean Platelet Vol. 9.1 fl (6.2-12.0); Monocyte# 0.52 X10^3/uL; Monocyte% 7.6 % (0-10); NRBC Flagged by Analyzer 0 % (0-5); Neutrophil # 3.41 X10^3/uL (2.7-7.7); Neutrophil % 49.6 % (47-70); Platelet Count 409 K/mm3 (150-450); RBC Distribution Width CV 12.3 % (11.6-14.6); RBC Distribution Width SD 39.4 fl (35.1-43.9); Red Blood Count 4.85 M/mm3 (4.2-5.4); White Blood Count 6.9 K/mm3 (4.4-11.0)
[2023-03-23 16:38] LABS: Erythrocyte Sedimentation Rate 2 mm/hr (0-30)
[2023-03-23 16:54] LABS: ALB/GLOB Ratio 1.1 RATIO (0.9-2.4); AST(SGOT) 28 U/L (15-37); Alanine Aminotransfer ALT/SGPT 74 U/L (13-56); Albumin, Serum 3.9 g/dL (3.2-5.0); Alkaline Phosphatase 68 U/L (45-117); Anion Gap 8 (5-15); BUN 17 mg/dL (7-18); BUN/Creat Ratio 22.6 RATIO (10-20); CRP < 2.90 mg/L (0.0-3.0); Calcium,Total 9.6 mg/dL (8.5-10.1); Chloride 103 mmol/L (98-107); Creatinine, Serum 0.75 mg/dL (0.55-1.02); EST Glomerular Filtration Rate 88 mL/min (>60); Est Glom Filt Rate - Afr Amer 106 mL/min (>60); Globulin 3.7 g/dL (2.2-4.2); Glucose 104 mg/dL (74-106); Potassium 3.8 mmol/L (3.5-5.1); Protein, Total 7.6 g/dL (6.4-8.2); Sodium Level 140 mmol/L (136-145)
== END | disposition home or self-care (01) ==
LOC: CT 16:09
PROVIDERS: PCP Internal Medicine; Referring Provider Internal Medicine; Visit Provider Internal Medicine
DX: R10.31 Right lower quadrant pain (principal)
CPT/HCPCS: 36415; 74176; 80053; 85025; 85652; 86140

== ENCOUNTER → 2023-03-31 | Outpatient (CLI) | payer OTHER, SELFPAY ==
--- NOTE | 2023-03-31 12:33 | US_ITS ---
STUDY: ULTRASOUND OF THE FEMALE PELVIS - COMPLETE REASON FOR EXAM: Female, 47 years old. VAGINAL BLEEDING LMP: No recent menstrual period. TECHNIQUE: Transabdominal and Transvaginal TECHNICAL QUALITY: Adequate. COMPARISON: Comparison is made with prior study April 17, 2022. FINDINGS: The uterus is anteverted and is tilted to the right side of the pelvis. The uterus measures 7.4 cm x 4.7 cm x 3 cm. Normal uterine cervix. The endometrium measures 3 mm in thickness, and is . There is no demonstrated endometrial mass. There is no demonstrated myometrial mass. I.U.D. - The patient does not have an I.U.D. The right ovary is non-visualized. The left ovary is visualized. The left ovary measures 2 cm x 2.3 cm x 1.8 cm. There is no left ovarian cyst or ovarian mass. There is no visualized left adnexal mass or complex lesion. There is normal arterial and normal venous vascularity. There is no fluid in the cul-de-sac. The pre void volume of the bladder was 453 ml. US/Pelvic w/ Transvaginal IMPRESSION: Normal female pelvis. Electronically Signed: Arron Velasco MD at 14:58 EST ,
== END | disposition home or self-care (01) ==
LOC: US 12:29
PROVIDERS: PCP Internal Medicine; Referring Provider Internal Medicine; Visit Provider Internal Medicine
DX: N93.9 Abnormal uterine and vaginal bleeding, unspecified (principal); R10.31 Right lower quadrant pain
CPT/HCPCS: 76830; 76856

== ENCOUNTER → 2023-04-17 | Outpatient (CLI) | payer OTHER, SELFPAY ==
--- NOTE | 2023-04-17 15:28 | RAD_ITS ---
HISTORY: PAIN. TECHNIQUE: XR Foot Min 3 Views. COMPARISON: 11/29/2019. FINDINGS: BONES : No acute fracture identified. Mineralization unremarkable. JOINTS: No dislocation. Joint spaces maintained. SOFT TISSUES: No radiopaque foreign body identified. RAD/Foot min 3 Views IMPRESSION: No acute fracture or dislocation identified in the right foot. Electronically Signed: Ana Gonzales MD at 13:12 EST ,
== END | disposition home or self-care (01) ==
LOC: MTRAD 15:26
PROVIDERS: PCP Internal Medicine; Referring Provider Podiatrist; Visit Provider Podiatrist
DX: M76.61 Achilles tendinitis, right leg (principal)
CPT/HCPCS: 73630

== ENCOUNTER → 2023-04-29 | Outpatient (CLI) | payer OTHER, SELFPAY ==
[2023-04-29 11:14] LABS: Progesterone Level 11.56 ng/mL (See Comment)
[2023-04-29 12:30] LABS: Free T3 3.2 pg/mL (2.18-3.98)
== END | disposition home or self-care (01) ==
PROVIDERS: PCP Internal Medicine; Referring Provider Specialist; Visit Provider Specialist
DX: E03.9 Hypothyroidism, unspecified (principal); E28.8 Other ovarian dysfunction
CPT/HCPCS: 36415; 82670; 84144; 84403; 84481

== ENCOUNTER → 2023-06-24 | Outpatient (CLI) | payer OTHER, SELFPAY ==
--- NOTE | 2023-06-24 12:36 | US_ITS ---
STUDY: ULTRASOUND BREAST - LEFT REASON FOR EXAM: Female, 48 years old. History of prior left breast biopsy. TECHNIQUE: Axial and longitudinal images of the LEFT breast were performed with a high resolution ultrasound transducer. # OF IMAGES: 4 COMPARISON: Comparison is made with prior sonogram dated December 24, 2022. FINDINGS: LEFT Breast: The superior retroareolar region of the left breast was examined with ultrasound. Stable 3 mm x 3 mm x 3 mm hypoechoic solid nodule at the 12:00 position of the breast at 2 cm from the nipple. US/Breast Limited Unilateral IMPRESSION: Stable examination. ASSESSMENT CATEGORY: BIRADS Category 2: Benign. A letter regarding these results will be sent to the patient by the facility within 30 days. Electronically Signed: Arron Velasco MD at 14:37 EDT ,
== END | disposition home or self-care (01) ==
PROVIDERS: PCP Internal Medicine; Referring Provider Surgery; Visit Provider Surgery
DX: N63.20 Unspecified lump in the left breast, unspecified quadrant (principal)
CPT/HCPCS: 76642

== ENCOUNTER → 2023-08-05 | Outpatient (CLI) | payer OTHER, SELFPAY ==
[2023-08-05 11:31] LABS: Estradiol 350.9 pg/mL; Free T3 3.3 pg/mL (2.18-3.98)
[2023-08-06 11:09] LABS: PROGESTERONE 4.8 ng/mL (.)
== END | disposition home or self-care (01) ==
LOC: MTLAB 08:52
PROVIDERS: PCP Internal Medicine; Referring Provider Specialist; Visit Provider Specialist
DX: N95.1 Menopausal and female climacteric states (principal); E03.9 Hypothyroidism, unspecified
CPT/HCPCS: 36415; 82670; 84144; 84403; 84481

== ENCOUNTER 2023-10-20 12:50 | Emergency (ER) | payer OTHER, SELFPAY ==
[2023-10-20 12:51] VITALS: BP 161/91; PULSE 111; RESP 16; TEMP 36.8; O2SAT 100; BMI 30.4
--- NOTE | 2023-10-20 13:07 | EX.ED.DYSGE1 ---
HPI History of Present Illness Chief Complaint: Dizziness [facility] Medical History Acute maxillary sinusitis, unspecified Acute otitis media, right Alcohol use Anxiety Arthritis Diabetes Dietary restriction Encounter for screening for COVID-19 Fibromyalgia History of hiatal hernia Hyperlipidemia IBS (irritable bowel syndrome) Non-smoker Post covid-19 condition, unspecified Post-menopausal Rheumatoid arthritis Thyroid disease Wears glasses Home Medications ?Medication ?Instructions ?Recorded ?Last Taken ?Type lactobacillus combination no.8 3 3,000 mmu cells PO DAILY 09/20/18 Unknown History billion cell capsule (Adult Probiotic) escitalopram oxalate 5 mg tablet 10 mg PO DAILY 09/26/19 Unknown History (Lexapro) multivitamin,[id number] 1 tab PO DAILY 09/26/19 Unknown History (Complete Multivitamin tablet) omega-3 fatty acids-vitamin E 1 cap PO DAILY 07/12/21 07/12/21 History 1,000 mg capsule estradiol 0.25 mg/0.25 gram (0.1 0.25 mg transdermal DAILY 04/16/22 Unknown History %) transdermal gel packet omeprazole 40 mg capsule,delayed 40 mg PO QDAY #30 caps 05/06/22 05/12/22 Rx release turmeric 400 mg capsule 400 mg PO DAILY 05/06/22 Unknown History Bioidentical Thyroid 1 tab PO/SL DAILY 05/07/22 Unknown History Allergy/AdvReac Type Severity Reaction Status Date / Time Sulfa (Sulfonamide Allergy Severe hives Verified 10/20/23 12:58 Antibiotics) benzoyl peroxide Allergy Intermediate Hives Verified 10/20/23 12:58 erythromycin base AdvReac Mild Vomiting Verified 10/20/23 12:58 (Erythromycin Base) Family History Mother Cancer uterine Thyroid disorder taylor Rheumatoid arthritis Grandmother Cancer rectal cancer Rheumatoid arthritis Father Heart disease Surgical History S/P laparoscopic cholecystectomy History of surgical biopsy History of colonoscopy H/O left knee surgery H/O dilation and curettage Social History Smoking Status: Never smoker alcohol intake: current details: social substance use type: does not use caffeine: No what type of physical activity do you participate in: walking frequency: 5-6 times per week seatbelt use: always do you feel safe at home: Yes 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 Notes she felt the room was moving. Notes this is since resolved but she still does not feel right. She further states she developed transient room spinning dizziness proximal hour prior to arrival. No symptoms have improved but she still feels off. Denies headache, chest pain, palpitations, shortness of breath, recent fevers or chills. Denies family or personal history of ACS. Denies alcohol or drug use. Notes she has been taking a functional medicine bio identical glucose supplement to control her prediabetes. She has been on for 2 weeks. She is most concerned about her blood sugar levels as well as her heart. She states I thought about just going home and taking Ativan but wanted to be safe to get checked out REVIEW OF SYSTEMS: Pertinent positives: Dizziness Pertinent negatives: See as per HPI PHYSICAL EXAM: Nursing triage notes reviewed, Vital signs reviewed Constitutional: please see [facility] HENT: MMM Eyes: Pupils equal round and reactive to light, Extraocular muscles intact Neck: No stridor, no JVD, full neck ROM Lungs: Clear to auscultation, No wheezing or rales. No increased work of breathing, no conversational dyspnea, no accessory muscle use, no nasal flaring. No respiratory distress noted Heart: Regular rate and rhythm, No murmurs, No rubs and No gallops, 2+ distal pulses (radial, femoral, posterior tibial) in all extremities Abdomen: Soft, there is no tenderness, rigidity, rebound or guarding, no obvious peritoneal signs, no palpable pulsatile abdominal masses, no auscultated abdominal bruit : No CVAT Extremities: No edema Neuro: Alert and oriented x3, neuro exam at baseline, cranial nerves II through XII are intact. No pain with extraocular muscle movement. There is negative test of skew. 5 of 5 strength in upper and lower extremities in flexion extension. Intact sensation to light touch in upper and lower extremity dermatomes. No truncal or extremity ataxia. No dysdiadochokinesia. Normal gait. 2+ reflexes in upper and lower extremities. No meningeal signs. Negative Babinski. NIH of 0. Skin: No rash or lesions noted MEDICAL DECISION MAKING: Chief Complaint: Dizziness External records reviewed: Imaging reviewed: Recent [facility] imaging of the brain Factors affecting care: Taylor's thyroiditis, rheumatoid arthritis, IBS, fibromyalgia Social determinants of health: none History obtained from others: none Consults: none MDM Narrative: Patient was initially hypertensive with a blood pressure 161/91, tachycardic with a rate of 111, no anemia or thrombocytopenia I considered the following differential diagnosis: Posterior circulation CVA, mass, bleed, anemia, arrhythmia, electrolyte disturbance, dehydration, thyroid dysfunction I obtained a broad lab and imaging workup to further elucidate etiology of patient's complaints. I gave 500 cc normal saline for initial resuscitation ALL IMAGES (IF OBTAINED) HAVE BEEN PERSONALLY REVIEWED AND INTERPRETED BY MYSELF. Initially ordered a CT scan of the head however patient refused. Patient was alert and orient x 3 and had capacity to make her medical symptoms and chose to forego CT at this time. Given I cannot Obtain a CT scan of the head I cannot rule out mass or bleed. EKG with sinus tachycardia rate 111, normal axis, no intervals, no STEMI BNP within the limits suggestive of no heart failure Serum alcohol negative TSH, free T3 and T4 within normal limits suggestive no thyroid pathology High-sensitivity troponin is negative, no evidence of myocardial ischemia BMP without evidence of significant electrolyte abnormalities, no anion gap, no acute kidney injury. LFTs show no evidence of hepatobiliary pathology. I have personally reviewed the patient's chest x-ray. Chest x-ray is unremarkable for pulmonary edema, pneumothorax, pneumonia or focal cardiopulmonary abnormality. Urinalysis within normal limits The synthesis of the patient's history, physical exam, labs images suggest no acute life-limiting etiology. The etiology of her dizziness is unclear clinically it is most consistent with likely transient BPPV. Discussed following up with her primary care physician. Discussed strict return precautions The patient and/or family, caregivers express understanding. The patient and/or family, caregivers agrees with the plan. Shared decision making: I will have a discussion with the patient and or visitors regarding risk/benefits of further testing or admission. They will be made aware of of the risk/benefits inherent in this decision they will be given the opportunity to voice understanding. Total critical care time today provided was at least 0 minutes. This excludes separately billable procedures. Critical care time (if documented) is secondary to the patient having high probability of clinically significant/life threatening deterioration in the patient's condition which required my urgent intervention. Impression: 1. Dizziness 2. Tachycardia Dispo: Discharge home This note was generated with [employer] dictation software. It may contain incorrect words, spelling, and punctuation that were not noted in review of the chart prior to signing. Lab Data Labs: Laboratory Results - last 24 hr 10/20/23 10/20/23 13:12 13:35 Sodium 139 Potassium 3.6 Chloride 103 Carbon Dioxide 29.0 Anion Gap 7 BUN 16 Creatinine 0.83 Estim Creat Clear Calc 76.63 Est GFR (MDRD) Af Amer 95 Est GFR (MDRD) Non-Af 79 BUN/Creatinine Ratio 19.3 Glucose 123 H Calcium 9.9 Total Bilirubin 0.30 AST 18 ALT 28 Alkaline Phosphatase 76 Troponin I High Sens 4 B-Natriuretic Peptide 16.0 Total Protein 7.7 Albumin 3.9 Globulin 3.8 Albumin/Globulin Ratio 1.0 TSH 1.310 Free T4 0.93 Free T3 pg/dL 2.7 Urine Color Yellow Urine Clarity Clear Urine pH 6.5 Ur Specific [place] 1.010 Urine Protein Negative Urine Glucose (UA) Normal Urine Ketones Negative Urine Occult Blood Negative Urine Nitrite Negative Urine Bilirubin Negative Urine Urobilinogen Normal Ur Leukocyte Esterase Negative Urine RBC 0 SEEN Urine WBC 0 SEEN Ur Squamous Epith Cells 0 SEEN Urine Bacteria 0 SEEN Urine Mucus 0 SEEN Ethyl Alcohol < 3.0 Radiography Diagnostic Testing: Clinical Impression(s) from Imaging Studies Chest X-Ray 10/20/23 14:00 IMPRESSION: Normal x-ray examination of the chest. Electronically Signed: rAron Velasco MD at 14:15 EDT , Discharge Plan Triage Chief Complaint: Dizziness ED Provider: Carson Hahn Dx/Rx/DC Orders Prescriptions: No Action Adult Probiotic 3 billion cell capsule 3,000 mmu cells PO DAILY Complete Multivitamin Tablet 1 tab PO DAILY escitalopram oxalate [Lexapro] 5 mg tablet 10 mg PO DAILY estradiol 0.25 mg/0.25 gram (0.1 %) gel in packet 0.25 mg transdermal DAILY turmeric 400 mg capsule 400 mg PO DAILY omeprazole 40 mg capsule,delayed release(DR/EC) 40 mg PO QDAY Qty: 30 0RF Rx Instructions: swallow whole; do not crush, chew, dissolve, cut, break omega-3 fatty acids-vitamin E 1,000 mg Capsule 1 cap PO DAILY Bioidentical Thyroid 1 tab PO/SL DAILY Primary Care Provider: Aniyah Hinton Referrals: Aniyah Hinton DO [Primary Care Provider] - Print Language: Albanian
--- NOTE | 2023-10-20 13:29 | EKG12_ITS ---
Test Reason : DIZZINESS Blood Pressure : / mmHG Vent. Rate : 111 BPM Atrial Rate : 111 BPM P-R Int : 154 ms QRS Dur : 076 ms QT Int : 342 ms P-R-T Axes : 037 008 034 degrees QTc Int : 465 ms Sinus tachycardia Possible Left atrial enlargement Nonspecific ST and T wave abnormality Abnormal ECG Confirmed by Emile Ch ([id number]), food editor ESTHER BROWN ([id number]) on 10/21/2023 10:14:34 AM Referred By: Confirmed By:Emile Ch
[2023-10-20 13:45] LABS: Bacteria 0 SEEN /hpf (None Seen); Mucous, Urine 0 SEEN /hpf (<or=2+); Red Blood Cells-Urine 0 SEEN /hpf (0-5); Squamous Epithelial Cells - UA 0 SEEN /hpf (5-10); White Blood Cells 0 SEEN /hpf (0-5)
[2023-10-20] MEDS: 0.9% Normal Saline (500mL Bag) 500 ML 1000 ML IV (13:47)
[2023-10-20 13:59] LABS: Color, Urine Yellow (Yellow); Glucose, Dipstick Normal (Normal); Ketone-Dipstick Negative (Negative); Leukocyte Esterase-Dipstick Negative /ul (Negative); Nitrite-Dipstick Negative (Negative); Occult Blood-Urine Negative /ul (Negative); Protein-Dipstick Negative (Negative); Urine Bilirubin Dipstick Negative (Negative); Urine Clarity Clear (Clear); Urine Urobilinogen Normal (Normal); Urine pH 6.5 (5.0 - 8.0)
--- NOTE | 2023-10-20 14:00 | RAD_ITS ---
STUDY: X-RAY CHEST REASON FOR EXAM: Female, 48 years old. Dizziness TECHNIQUE: Single AP portable view of the chest. COMPARISON: Comparison is made with prior study October 18, 2022. FINDINGS: EKG electrodes are seen. The lungs are clear and expanded. There is no demonstrated pleural abnormality. Normal size heart. Normal mediastinum and dmitry. Normal visualized pulmonary arteries. Normal visualized aortic arch and descending thoracic aorta. Normal visualized thoracic spine. Normal visualized ribs, clavicles, and shoulders. There is no demonstrated abnormality of the visualized soft tissue structures of the upper abdomen. RAD/Chest 1 View (Portable) IMPRESSION: Normal x-ray examination of the chest. Electronically Signed: Arron Velasco MD at 14:15 EDT ,
[2023-10-20 14:10] LABS: Alcohol, Blood (Medical)-Serum < 3.0 mg/dL
[2023-10-20 14:35] LABS: AST(SGOT) 18 U/L (15-37); Alanine Aminotransfer ALT/SGPT 28 U/L (13-56); Albumin, Serum 3.9 g/dL (3.2-5.0); Alkaline Phosphatase 76 U/L (45-117); Anion Gap 7 (5-15); BUN 16 mg/dL (7-18); BUN/Creat Ratio 19.3 RATIO (10-20); Calcium,Total 9.9 mg/dL (8.5-10.1); Chloride 103 mmol/L (98-107); Creatinine, Serum 0.83 mg/dL (0.55-1.02); EST Glomerular Filtration Rate 79 mL/min (>60); Est Glom Filt Rate - Afr Amer 95 mL/min (>60); Estimated Creatinine Clearance 76.63 ml/min; Free T3 2.7 pg/mL (2.18-3.98); Globulin 3.8 g/dL (2.2-4.2); Glucose 123 mg/dL (74-106); Potassium 3.6 mmol/L (3.5-5.1); Protein, Total 7.7 g/dL (6.4-8.2); Sodium Level 139 mmol/L (136-145); T4 Free Direct 0.93 ng/dL (0.76-1.46); Troponin-I HS 4 pg/mL (3.0-54.0)
[2023-10-20 14:51] VITALS: BP 131/95; PULSE 95; RESP 16; TEMP 36.7; O2SAT 97
== END 2023-10-20 14:55 | disposition home or self-care (01) ==
PROVIDERS: Emergency Provider Emergency Medicine; PCP Internal Medicine; Visit Provider Emergency Medicine
DX: R42 Dizziness and giddiness (principal); R00.0 Tachycardia, unspecified
CPT/HCPCS: 71045; 80048; 80053; 81001; 82077; 83880; 84439; 84443; 84481; 84484; 93005; 99284; J7030

== ENCOUNTER → 2023-11-24 | Outpatient (CLI) | payer OTHER, SELFPAY ==
[2023-11-24 13:23] LABS: Estradiol 16.4 pg/mL; Free T3 2.8 pg/mL (2.18-3.98); T4 Free Direct 1.02 ng/dL (0.76-1.46)
[2023-11-25 08:13] LABS: PROGESTERONE 2.4 ng/mL (.)
== END | disposition home or self-care (01) ==
LOC: MTLAB 09:16
PROVIDERS: PCP Internal Medicine; Referring Provider Specialist; Visit Provider Specialist
DX: E03.9 Hypothyroidism, unspecified (principal); E28.8 Other ovarian dysfunction
CPT/HCPCS: 36415; 82670; 84144; 84403; 84439; 84481

== ENCOUNTER → 2023-12-18 | Outpatient (CLI) | payer OTHER, SELFPAY ==
--- NOTE | 2023-12-18 13:03 | BI_ITS ---
MAMMOGRAPHY - BILATERAL SCREENING REASON FOR EXAM: Female, 48 years old. Routine annual screening examination. PERTINENT HISTORY: Non-contributory. History of prior left ultrasound-guided breast biopsy. TECHNIQUE: Digital bilateral breast kathryn (3D mammographic acquisition) in the CC and MLO projections. 2-D mediolateral oblique (MLO) and craniocaudad (CC) views of both breasts were obtained. CAD: Full Field Digital Mammography with Computer Added Detection was performed. COMPARISON: Comparison is made with prior study December 08, 2022 and December 16, 2022. FINDINGS: Breast Composition: There are scattered areas of fibroglandular density. There are no dominant masses or suspicious calcifications. A tissue clip marker is seen in the anterior superior lateral aspect of the left breast a 2. Prior ultrasound-guided breast biopsy. No other significant abnormalities are identified. There has been no significant change since the prior study. BI/SCRN MAMM (CAD)W/KATHRYN BILAT IMPRESSION: Stable bilateral screening mammogram. Yearly follow-up mammogram recommended. (A) ASSESSMENT CATEGORY: BIRADS Category 2: Benign. A letter regarding these results will be sent to the patient by the facility within 30 days. Approximately 10% of breast cancers are not detected by mammography. A normal mammogram should not delay biopsy of a clinically suspicious abnormality. [id number] Electronically Signed: Arron Velasco MD at 13:33 EDT ,
== END | disposition home or self-care (01) ==
LOC: OPBI 12:49
PROVIDERS: PCP Internal Medicine
DX: Z12.31 Encounter for screening mammogram for malignant neoplasm of breast (principal)
CPT/HCPCS: 77063; 77067

== ENCOUNTER → 2024-01-25 | Outpatient (CLI) | payer OTHER, SELFPAY ==
[2024-01-25 14:26] LABS: Bacteria 0 SEEN /hpf (None Seen); Mucous, Urine 0 SEEN /hpf (<or=2+)
[2024-01-25 17:32] LABS: Absolute Lymphocyte Count 2.01 X10^3/uL (0.83-4.51); Absolute Neutrophil Count 4.1 X10^3/uL (2.0-7.7); Basophil# 0.08 X10^3/uL; Basophil% 1.2 % (0-1); Eosinophils% 1.5 % (0-5); Hematocrit 43.2 % (37-47); Lymphocyte # 2.01 X10^3/ul (0.83-4.51); Lymphocyte % 30.2 % (19-41); Mean Corp Hgb Conc 32.4 g/dL (32-36); Mean Corpuscular Hgb 28.3 pg (27.0-32.0); Mean Corpuscular Volume 87.3 fL (81-99); Mean Platelet Vol. 9.7 fl (6.2-12.0); NRBC Flagged by Analyzer 0 % (0-5); Neutrophil # 4.05 X10^3/uL (2.7-7.7); Neutrophil % 60.8 % (47-70); Platelet Count 375 K/mm3 (150-450); RBC Distribution Width CV 12.4 % (11.6-14.6); RBC Distribution Width SD 39.8 fl (35.1-43.9); Red Blood Count 4.95 M/mm3 (4.2-5.4); White Blood Count 6.7 K/mm3 (4.4-11.0)
[2024-01-25 17:50] LABS: Color, Urine Yellow (Yellow); Glucose, Dipstick Normal (Normal); Ketone-Dipstick Negative (Negative); Leukocyte Esterase-Dipstick Negative /ul (Negative); Nitrite-Dipstick Negative (Negative); Occult Blood-Urine Negative /ul (Negative); Protein-Dipstick Negative (Negative); Urine Bilirubin Dipstick Negative (Negative); Urine Clarity Clear (Clear); Urine Urobilinogen Normal (Normal)
[2024-01-25 19:11] LABS: ALB/GLOB Ratio 1.1 RATIO (0.9-2.4); AST(SGOT) 22 U/L (15-37); Alanine Aminotransfer ALT/SGPT 36 U/L (13-56); Alkaline Phosphatase 76 U/L (45-117); Anion Gap 9 (5-15); BUN 17 mg/dL (7-18); BUN/Creat Ratio 25.3 RATIO (10-20); CPK Total, Creatine Kinase 79 U/L (26-192); Calcium,Total 9.9 mg/dL (8.5-10.1); Chloride 106 mmol/L (98-107); Creatinine, Serum 0.67 mg/dL (0.55-1.02); EST Glomerular Filtration Rate 100 mL/min (>60); Est Glom Filt Rate - Afr Amer 121 mL/min (>60); Globulin 3.5 g/dL (2.2-4.2); Glucose 98 mg/dL (74-106); Potassium 3.8 mmol/L (3.5-5.1); Protein, Total 7.5 g/dL (6.4-8.2); Sodium Level 138 mmol/L (136-145)
[2024-01-25 19:58] LABS: Red Blood Cells-Urine 0-5 SEEN /hpf (0-5); Squamous Epithelial Cells - UA 0-5 SEEN /hpf (5-10); White Blood Cells 0-5 SEEN /hpf (0-5)
[2024-01-27 11:09] LABS: ANTINUCLEAR ANTIBODIES DIRECT Negative (Negative); Anti-dsDNA Ab 1 IU/mL (0-9)
== END | disposition home or self-care (01) ==
PROVIDERS: PCP Internal Medicine; Referring Provider Physician Assistant Medical; Visit Provider Physician Assistant Medical
DX: L30.8 Other specified dermatitis (principal)
CPT/HCPCS: 36415; 80053; 81001; 82550; 85025; 86038; 86225

== ENCOUNTER → 2024-03-16 | Outpatient (CLI) | payer OTHER, SELFPAY ==
[2024-03-16 18:17] LABS: Free T3 3.2 pg/mL (2.18-3.98)
[2024-03-17 08:09] LABS: PROGESTERONE 1.7 ng/mL (.)
== END | disposition home or self-care (01) ==
LOC: MTLAB 10:36
PROVIDERS: PCP Internal Medicine; Referring Provider Specialist; Visit Provider Specialist
DX: E03.9 Hypothyroidism, unspecified (principal); N95.1 Menopausal and female climacteric states
CPT/HCPCS: 36415; 82670; 84144; 84403; 84481

== ENCOUNTER → 2024-06-14 | Outpatient (CLI) | payer OTHER, SELFPAY ==
[2024-06-14 12:59] LABS: Estradiol 52.1 pg/mL
[2024-06-15 04:07] LABS: PROGESTERONE 3.4 ng/mL (.)
== END | disposition home or self-care (01) ==
LOC: MTLAB 09:39
PROVIDERS: PCP Internal Medicine; Referring Provider Specialist; Visit Provider Specialist
DX: E03.9 Hypothyroidism, unspecified (principal); E27.9 Disorder of adrenal gland, unspecified; N95.1 Menopausal and female climacteric states
CPT/HCPCS: 36415; 82627; 82670; 84144; 84403; 84481; 82626

== ENCOUNTER → 2024-08-29 | Outpatient (CLI) | payer OTHER, SELFPAY ==
[2024-08-29 13:14] LABS: AST(SGOT) 25 U/L (<=31); Alanine Aminotransfer ALT/SGPT 36 U/L (<=34); Albumin, Serum 4.3 g/dL (3.5-5.0); Alkaline Phosphatase 64 U/L (35-104); Anion Gap 13 (5-15); BUN 14 mg/dL (4-19); BUN/Creat Ratio 21.3 RATIO (10-20); Calcium,Total 9.3 mg/dL (7.6-11.0); Carbon Dioxide 22.6 mmol/L (21.0-32.0); Chloride 102 mmol/L (98-108); Cholesterol 209 mg/dL (<=200); Globulin 2.6 g/dL (2.2-4.2); Glucose 104 mg/dL (70-99); Low Density Lipoprotein Calc. 121 mg/dL; Potassium 4.2 mmol/L (3.3-5.1); Triglycerides 185 mg/dL; Very Low Density Lipoprotein 37 mg/dL (5-40); cholesterol:hdl ratio screen 4.12
[2024-08-29 13:53] LABS: Free T3 3.4 pg/mL (2.18-3.98)
[2024-08-30 04:07] LABS: PROGESTERONE 3.4 ng/mL (.)
== END | disposition home or self-care (01) ==
LOC: MTLAB 09:17
PROVIDERS: PCP Internal Medicine; Referring Provider Specialist; Visit Provider Specialist
DX: E78.5 Hyperlipidemia, unspecified (principal); E03.9 Hypothyroidism, unspecified; E27.9 Disorder of adrenal gland, unspecified; N95.1 Menopausal and female climacteric states; F32.89 Other specified depressive episodes; R73.9 Hyperglycemia, unspecified
CPT/HCPCS: 36415; 80053; 80061; 82627; 82670; 83036; 84144; 84403; 84481; 82626

== ENCOUNTER → 2024-11-08 | Outpatient (CLI) | payer OTHER, SELFPAY ==
[2024-11-09 04:07] LABS: PROGESTERONE 6.0 ng/mL (.)
[2024-11-11 09:10] LABS: Free T3 2.9 pg/mL (2.18-3.98)
[2024-11-13 13:08] LABS: Testosterone, % Free 2.52 % (0.50-2.80); Testosterone, Free 0.68 ng/dL (0.10-0.85)
== END | disposition home or self-care (01) ==
LOC: MTLAB 09:04
PROVIDERS: PCP Internal Medicine; Referring Provider Specialist; Visit Provider Specialist
DX: E03.9 Hypothyroidism, unspecified (principal); E27.9 Disorder of adrenal gland, unspecified; N95.1 Menopausal and female climacteric states
CPT/HCPCS: 36415; 82627; 82670; 84144; 84402; 84403; 84439; 84481; 82626

== ENCOUNTER → 2024-12-20 | Outpatient (CLI) | payer OTHER, SELFPAY ==
--- NOTE | 2024-12-20 12:33 | BI_ITS ---
EXAM: SCRN MAMM (CAD)W/KATHRYN BILAT DATE: 12/20/2024 CLINICAL HISTORY: F, Age 49 y/o , SCREENING No family history. History of prior left ultrasound-guided breast biopsy. TECHNIQUE: Procedure Code: [id number] Modality: MG Procedure: SCRN MAMM (CAD)W/KATHRYN BILAT COMPARISON: Prior exam(s) dated December 18, 2023.. FINDINGS: TISSUE DENSITY: There are scattered areas of fibroglandular density. Bilateral Breast Mammographic Findings: No significant masses, calcifications or other abnormalities are identified. A tissue clip marker is once again seen in the anterior superior lateral aspect of the left breast secondary to prior ultrasound-guided breast biopsy. Stable benign-appearing bilateral axillary lymph nodes. No suspicious masses, areas of developing architectural distortion, or suspicious calcifications. There has been no significant interval change. BI/SCRN MAMM (CAD)W/KATHRYN BILAT IMPRESSION: Stable bilateral screening mammogram. OVERALL FINAL ASSESSMENT BI-RADS 2: BENIGN RECOMMENDATION: Routine annual follow-up in 1 Year Additional Recommendation none A letter with findings and recommendations will be mailed to the patient. Reading Location: [id number]
== END | disposition home or self-care (01) ==
LOC: OPBI 12:32
PROVIDERS: PCP Internal Medicine; Referring Provider Specialist; Visit Provider Specialist
DX: Z12.31 Encounter for screening mammogram for malignant neoplasm of breast (principal)
CPT/HCPCS: 77063; 77067